=== PATIENT | female | born 1990 | race Caucasian/White ===

== ENCOUNTER → 2016-10-25 | Outpatient (CLI) | payer MEDICAID ==
[~2016-10-25] MED LIST: EFFE75CA75 PO; LOTRCRE TOP; TRAZ25TA PO; no home medications
--- NOTE | 2016-10-25 15:56 | REP ---
Obstetric sonography: History: Supervision of followup anatomy. Findings: Scanning through the gravid uterus demonstrates a viable single intrauterine gestation in a cephalic lie. motion is observed and heart rate is recorded at 139 beats per minute. A posterior grade 1 placenta is seen without evidence of previa or abruption. Amniotic fluid is subjectively normal. Closed cervical length is 3.9 cm. No extrauterine abnormality is observed. There has been appropriate interval growth. Exam quality was inhibited to some degree by maternal body habitus and position. No anomaly is seen. face and profile are less than optimally seen today but these structures were identified previously. The following additional anatomic structures are identified and felt to be sonographically unremarkable: cranium, choroid plexus, cavum, cerebellum and posterior fossa, lungs, four-chamber heart with left and right ventricular outflow tract views, diaphragm, left-sided stomach, abdominal wall cord insertion, three-vessel umbilical cord, kidneys and bladder, spine, upper and lower extremities. The umbilical cord is seen draping across the shoulders. Biometry chart: BPD 5.0 cm = 21 weeks 2 days Head circumference 18.5 cm = 20 weeks 6 days Abdominal circumference 15.2 cm = 20 weeks 3 days Femur length 3.5 cm = 20 weeks 6 days Humeral length 3.4 cm = 21 weeks 3 days Cerebellar diameter 2.2 cm = 20 weeks 6 days HC/AC ratio normal 1.22 cephalic index normal 0.76 estimated weight 368 grams, 0 pounds 12 ounces, 48th percentile for 20 weeks 4 days. Impression: Viable single intrauterine gestation at 20 weeks 4 days by today's composite sonographic criteria. Expected gestational age estimate based on prior sonography is also 20 weeks 4 days. HENNA by prior sonography is March 10, 2017. anatomic survey is felt to be complete in combination with the prior study. Signed by Seven Meyer MD 10/25/2016 05:41 P
== END ==
LOC: M SMT 13:47
PROVIDERS: ATTEND Specialist
DX: Z34.82 Encounter for supervision of other normal pregnancy, second trimester (principal); Z36 Encounter for antenatal screening of mother; Z3A.20 20 weeks gestation of pregnancy

== ENCOUNTER 2016-11-19 19:39 | Outpatient (CLI) | payer MEDICAID ==
[~2016-11-19] VITALS: Ht 149.9 cm; Wt 95.0 kg
[2016-11-19] MEDS ORDERED: LACTATED RINGER'S 1000 ML IV ONE (21:15)
[2016-11-19] MEDS ORDERED: LR 1,000 ML IV SCH (21:15)
[2016-11-19] MEDS ORDERED: ONDANSETRON 4MG/2ML VIAL (J2405) IV PRN (21:30)
[2016-11-19] MEDS ORDERED: ONDANSETRON 4 MG TAB (S0181) PO PRN (22:15)
[2016-11-19 22:34] LABS: AMPHETAMINES URINE REFLEX NEGATIVE (NEGATIVE); BARBITURATES URINE REFLEX NEGATIVE (NEGATIVE); BENZODIAZEPINES URINE REFLEX NEGATIVE (NEGATIVE); COCAINE METABOLITE URINE REFLE NEGATIVE (NEGATIVE); CONTROL LINE INT CTR LINE PRESENT; METHADONE URINE REFLEX NEGATIVE (NEGATIVE); OPIATES URINE REFLEX NEGATIVE (NEGATIVE); TRICYCLIC ANTIDEPRESS UR REFL NEGATIVE (NEGATIVE)
[2016-11-19 22:51] LABS: MEAN CORPUSCULAR HEMOGLOBIN 29.5 pg (27.0-33.0); MEAN CORPUSCULAR HGB CONC 34.6 g/dl (32.0-36.5); MEAN CORPUSCULAR VOLUME 85.3 fl (80.0-96.0); RED CELL DISTRIBUTION WIDTH 14.1 % (11.5-14.5); WHITE BLOOD COUNT 13.4 K/mm3 (4.0-10.0)
== END 2016-11-20 00:50 | disposition home or self-care (01) ==
LOC: M LDO 19:39
PROVIDERS: ATTEND Advanced Practice Midwife
DX: O21.2 Late vomiting of pregnancy (principal); Z3A.24 24 weeks gestation of pregnancy
CPT/HCPCS: 36415; 59025; 80306; 85027; G0480

== ENCOUNTER → 2016-12-13 | Outpatient (CLI) | payer MEDICAID ==
--- NOTE | 2016-12-13 15:27 | REP ---
Size and date discrepancy. Priors reviews. Multiple sonographic images of the gravid uterus show a single living intrauterine gestation in the cephalic presentation. Doppler interrogation of the heart shows a heart rate of 139 beats per minute. The placenta is anterior and not low lying. The subjected amniotic fluid volume is within normal limits with a calculated amniotic fluid index of 12.2 and an expected range of 9.4 to 22.7. The cervix measures 3.9 cm in length and is closed. Doppler interrogation of the umbilical artery shows an A/B ratio of 3.14. This is within the normal range. BPD 6.8 cm = 27 weeks 3 days HC 25.9 cm = 28 weeks 1 day AC 22.6 cm = 27 weeks 0 days FL 4.8 cm = 26 weeks 1 day The estimated weight is 986 grams, which is at the 23rd percentile for a 28-hozo-1-day gestational age. Single living intrauterine gestation as described above. With an estimated gestational age of 26w 5d via composite criteria and an estimated date of delivery of 6-7-17 by today's exam Signed by Bi Raines DO 12/13/2016 03:50 P
== END ==
LOC: M SMT 13:42
PROVIDERS: ATTEND Obstetrics & Gynecology
DX: O26.843 Uterine size-date discrepancy, third trimester (principal); Z3A.26 26 weeks gestation of pregnancy

== ENCOUNTER → 2016-12-31 | Outpatient (CLI) | payer MEDICAID ==
[2016-12-31 13:24] LABS: BASO % 0.2 % (0.0-1.0); EOS # 0.2 K/mm3 (0.0-0.50); EOS % 1.4 % (0.0-3.0); LARGE UNSTAINED CELL # 0.1 K/mm3 (0.0-0.4); LARGE UNSTAINED CELL % 0.8 % (0.0-4.0); LYMPH # 2.2 K/mm3 (1.5-6.5); LYMPH % 13.7 % (24.0-44.0); MEAN CORPUSCULAR HEMOGLOBIN 29.3 pg (27.0-33.0); MEAN CORPUSCULAR HGB CONC 33.5 g/dl (32.0-36.5); MEAN CORPUSCULAR VOLUME 87.3 fl (80.0-96.0); MONO # 0.7 K/mm3 (0.0-0.8); MONO % 4.4 % (0.0-5.0); NEUTROPHILS # 11.9 K/mm3 (1.8-7.7); NEUTROPHILS % 79.5 % (36.0-66.0); PLATELET COUNT, AUTOMATED 368 k/mm3 (150-450); RED CELL DISTRIBUTION WIDTH 14.3 % (11.5-14.5)
== END ==
LOC: M WUC 09:13
PROVIDERS: ATTEND Obstetrics & Gynecology
DX: Z34.83 Encounter for supervision of other normal pregnancy, third trimester (principal); Z36 Encounter for antenatal screening of mother

== ENCOUNTER 2017-01-12 19:54 | Outpatient (CLI) | payer MEDICAID ==
[~2017-01-12] VITALS: Ht 149.9 cm; Wt 91.0 kg
[2017-01-12] MEDS ORDERED: PRENTAB9 PO (20:08)
[2017-01-12 20:10] VITALS: BP 102/55
== END 2017-01-13 01:00 | disposition home or self-care (01) ==
LOC: M LDO 19:54
PROVIDERS: ATTEND Specialist
DX: O47.03 False labor before 37 completed weeks of gestation, third trimester (principal); Z3A.31 31 weeks gestation of pregnancy; W19.XXXA Unspecified fall, initial encounter; X58.XXXA Exposure to other specified factors, initial encounter; Y93.9 Activity, unspecified; Y92.9 Unspecified place or not applicable; Y99.8 Other external cause status

== ENCOUNTER → 2017-02-07 | Outpatient (REF) | payer MEDICAID ==
[~2017-02-07] MED LIST changes: +PRENTAB9 PO
== END ==
LOC: M LAB REF 12:44
PROVIDERS: ATTEND Specialist
DX: O24.419 Gestational diabetes mellitus in pregnancy, unspecified control (principal)

== ENCOUNTER 2017-02-17 07:20 | Inpatient (IN) | payer MEDICAID ==
[~2017-02-17] VITALS: Ht 149.9 cm; Wt 98.0 kg
[2017-02-17] VITALS (9 sets, daily range): BP systolic 118–131; BP diastolic 57–81
[2017-02-17] MEDS ORDERED: ZANTTAB PO (07:53)
[2017-02-17] MEDS ORDERED: GLYB5TA PO (07:53)
[2017-02-17] MEDS ORDERED: ZOFR4TAB3 PO (07:53)
[2017-02-17] MEDS ORDERED: PROM200C5 PO (07:53)
[2017-02-17] MEDS ORDERED: INSULIN HUMAN REGULAR 100 UNITS in NS 99 ML IV SCH (08:10)
[2017-02-17] MEDS ORDERED: INSULIN IV RATE CHANGE DOCUMENTATION ML/HR XX SCH (08:15)
[2017-02-17 08:29] LABS: MEAN CORPUSCULAR HEMOGLOBIN 29.9 pg (27.0-33.0); MEAN CORPUSCULAR HGB CONC 34.6 g/dl (32.0-36.5); MEAN CORPUSCULAR VOLUME 86.4 fl (80.0-96.0); RED CELL DISTRIBUTION WIDTH 14.3 % (11.5-14.5); WHITE BLOOD COUNT 14.5 K/mm3 (4.0-10.0)
[2017-02-17] MEDS: NS 1,000 ML IV SCH ×2 (08:35→16:26)
[2017-02-17] MEDS: miSOPROStol 50 MCG 1/2 TAB (S0191) PO SCH ×4 (08:35→21:10)
[2017-02-17] MEDS: INSULIN HUMAN REGULAR 100 UNITS in NS 99 ML IV SCH (09:00)
--- NOTE | 2017-02-17 09:31 | HPE ---
DATE OF ADMISSION: 02/17/2017 Mary Carmen is a 26-year-old 5, para 0-0-4-0 at 37 1/7 weeks gestation with an EDC of 03/09/2017 based on first trimester ultrasound. She presents to labor and delivery today per recommendation and consult with Dr. Edwin Valentin due to uncontrolled diabetes during , noncompliance with care, and a history of multiple miscarriages. She reports an occasional contraction. She denies vaginal bleeding and leakage of fluid. The fetus has been active today. Her care was initiated at [facility] in the first trimester. Her course has been complicated by diagnosis of gestational diabetes in the third trimester with a 1-hour glucose greater than 200. She was placed on glyburide, however, chose not to take the medication as instructed. She failed to document or obtain her glucoses in any regular fashion. She rarely brought a glucose log for review. She is a cigarette smoker, approximately one pack per day. She is noted to have polyhydramnios and she is rubella nonimmune. OBSTETRICAL HISTORY: Spontaneous miscarriage times four, dates are not reviewed. OBSTETRICAL LABS: Blood type is B+. Antibody screen was negative. Her Pap from 2013 was normal. She is rubella nonimmune. VDRL was nonreactive. Hepatitis surface antigen is negative. HIV is negative. Hepatitis C antibody negative. Gonorrhea and chlamydia negative. She did not have any genetic screening labs performed. Gestational diabetic screening elevated at 203. Group B Streptococcus (GBS) negative. She did undergo a urine drug screen on 11/19/2016 was positive for cannabinoids. Urine drug screen will be repeated today. PAST MEDICAL HISTORY: Asthma. Allergy to latex. Childhood varicella. FAMILY HISTORY: Diabetes, hypertension, heart disease, asthma, mental retardation, autism. SURGERIES: Tympanostomy. SOCIAL HISTORY: The patient is single. She does appear to have family members at bedside and supportive. There does not to be appear to be a father of the baby involved at this time. She is a smoker, one pack per day. She denies alcohol and drug use. There is a denied history of sexually transmitted infections. Denies history of abuse physical, sexual and emotional. ALLERGIES: 1. Pollen. 2. Perfume. 3. Nicotine. 4. LATEX. CURRENT MEDICATIONS: - vitamins. OBJECTIVE: Temperature 97.4, pulse 96, respirations 18, blood pressure 129/78. She is alert and oriented. She does report and grimace with some back discomfort with activity. heart rate is 120 with moderate variability, positive accelerations, no decelerations observed. There is uterine irritability and occasional contraction noted. Her abdomen is gravid, cephalic presentation. Estimated weight 2269-5178 grams. Sterile vaginal exam 1 cm dilated, 80% effaced, ballotable. ASSESSMENT: Intrauterine at 37 weeks gestation. heart rate category 1. Uncontrolled diabetes during . PLAN: Per recommendation and consult with Dr. Valentin, admit the patient to labor and delivery for induction of labor. Labs as usual. Urine drug screen. Insulin drip per protocol. Out of bed ad hill. Consistent carbohydrate diet at this time. Start misoprostol 50 mcg p.o. q.4 h for cervical ripening. I did review risks to induction including failed induction, intolerance to labor and increased risk for section. All of the patient's questions have been answered and she does desire to proceed with induction at this time. I do anticipate cervical ripening and in active labor. MTDD
[2017-02-17] MEDS ORDERED: BUTORPHANOL 2 MG/ML INJ (J0595) IV ONE (16:15)
[2017-02-17] MEDS ORDERED: PROMETHAZINE INJ 25 MG/ML VIAL (J2550) IV ONE (16:15)
[2017-02-18] VITALS (44 sets, daily range): BP systolic 104–144; BP diastolic 52–92
[2017-02-18] MEDS ORDERED: miSOPROStol 100 MCG TAB (S0191) PO ONE (01:15)
[2017-02-18] MEDS ORDERED: PROMETHAZINE INJ 25 MG/ML VIAL (J2550) IV ONE (02:00)
[2017-02-18] MEDS ORDERED: BUTORPHANOL 2 MG/ML INJ (J0595) IV ONE (02:00)
[2017-02-18] MEDS: LR 1,000 ML IV SCH (04:15)
[2017-02-18] MEDS ORDERED: LR 1,000 ML IV SCH ×2 (07:53→23:00)
[2017-02-18] MEDS ORDERED: OXYTOCIN DRIP 30 UNITS in APPROPRIATE DILUENT 1 EA IV SCH (08:00)
[2017-02-18] MEDS ORDERED: FENTANYL 2MCG/ML ROPIVACAINE 0.2% IN 0.9% NACL 200ML IVBAG As Ordered ONE (09:13)
[2017-02-18] MEDS ORDERED: ePHEDrine SULFATE 25 MG/5 ML(5MG/ML) SYRINGE IV PRN (11:15)
[2017-02-18] MEDS ORDERED: ONDANSETRON 4MG/2ML VIAL (J2405) IV PRN ×4 (11:15→23:00)
[2017-02-18] MEDS ORDERED: NALOXONE INJ 0.4 MG/1 ML VIAL (J2310) IV PRN ×3 (11:15→22:00)
[2017-02-18] MEDS ORDERED: REFRIGERATOR IV KEYS XX PRN (11:15)
[2017-02-18] MEDS ORDERED: diphenhydrAMINE INJ 50MG/ML VIAL (J1200) IV PRN ×2 (11:15→23:00)
[2017-02-18] MEDS ORDERED: LACTATED RINGER'S 1000 ML IV PRN (11:15)
[2017-02-18] MEDS ORDERED: EPIDURAL COMMENT XX SCH (11:15)
[2017-02-18] MEDS ORDERED: EPIDURAL/PCA KEYS XX PRN (11:15)
[2017-02-18] MEDS ORDERED: FENTANYL/ROPIVACAINE/NACL BAG 200 ML EPIDURAL SCH (11:15)
[2017-02-18] MEDS: INSULIN HUMAN REGULAR 100 UNITS in NS 99 ML IV SCH (12:30)
[2017-02-18] MEDS ORDERED: ACETAMINOPHEN 500 MG TAB PO ONE (19:45)
[2017-02-18] MEDS ORDERED: BICITRA 30ML SOLN UDC PO ONE (20:30)
[2017-02-18] MEDS ORDERED: dexameTHASONE 4 MG/ML 1ML VIAL (J1100) As Ordered ONE (21:42)
[2017-02-18] MEDS ORDERED: ePHEDrine SULFATE 25 MG/5 ML(5MG/ML) SYRINGE As Ordered ONE (21:42)
[2017-02-18] MEDS ORDERED: OXYTOCIN INJ 10 UNITS/ML VIAL (J2590) As Ordered ONE (21:42)
[2017-02-18] MEDS ORDERED: SODIUM BICARBONATE 8.4% INJ 50 ML SYRINGE As Ordered ONE (21:42)
[2017-02-18] MEDS ORDERED: KETOROLAC 60 MG/2 ML VIAL (J1885) As Ordered ONE (21:42)
[2017-02-18] MEDS ORDERED: MORPHINE PRES-FREE INJ 10 MG/10 ML VIAL (J2274) As Ordered ONE (21:42)
[2017-02-18] MEDS ORDERED: ONDANSETRON 4MG/2ML VIAL (J2405) As Ordered ONE (21:42)
[2017-02-18] MEDS ORDERED: LIDOCAINE 2% W/EPIN INJ 20ML **PRES FREE As Ordered ONE (21:42)
[2017-02-18] MEDS ORDERED: PHENYLephrine HCL 500 MCG/5 ML (100MCG/ML) SYRINGE (J2370) As Ordered ONE (21:42)
[2017-02-18] MEDS ORDERED: METOCLOPRAMIDE INJ 10MG/2ML VIAL (J2765) IV PRN (22:00)
[2017-02-18] MEDS ORDERED: NALBUPHINE HCL 10 MG/ML AMP (J2300) IV PRN ×2 (22:00→23:00)
[2017-02-18] MEDS ORDERED: OXYTOCIN DRIP 30 UNITS in APPROPRIATE DILUENT 1 EA IV ONE (22:45)
[2017-02-18] MEDS ORDERED: RHOGAM 300 MCG (1500 IU) INJ (J2790) IM SCH (22:45)
[2017-02-18] MEDS ORDERED: MEASLES,MUMPS,RUBELLA VACCINE INJ (MMR-II) (90707) SC SCH (22:45)
[2017-02-18] MEDS ORDERED: PERCOCET 5MG/325MG TAB PO PRN (22:45)
[2017-02-18] MEDS ORDERED: DOCUSATE SODIUM 100 MG CAP PO PRN (22:45)
[2017-02-18] MEDS ORDERED: MOM 30ML SUSPENSION UDC PO PRN (22:45)
[2017-02-18] MEDS ORDERED: fentaNYL 100 MCG/2 ML INJECTION (J3010) IV PRN (23:00)
[2017-02-18] MEDS ORDERED: MEPERIDINE INJ 25 MG/ML VIAL (J2175) IV PRN (23:00)
[2017-02-19] VITALS (8 sets, daily range): BP systolic 101–156; BP diastolic 55–79
[2017-02-19] MEDS ORDERED: diphenhydrAMINE 50 MG CAP PO PRN (03:00)
[2017-02-19] MEDS: KETOROLAC 30 MG/ML VIAL (J1885) IV SCH ×4 (04:22→22:10)
[2017-02-19 06:40] LABS: MEAN CORPUSCULAR HEMOGLOBIN 29.2 pg (27.0-33.0); MEAN CORPUSCULAR HGB CONC 33.2 g/dl (32.0-36.5); MEAN CORPUSCULAR VOLUME 87.9 fl (80.0-96.0); RED CELL DISTRIBUTION WIDTH 14.3 % (11.5-14.5); WHITE BLOOD COUNT 17.7 K/mm3 (4.0-10.0)
[2017-02-19] MEDS: LR 1,000 ML IV SCH ×3 (06:41→22:41)
--- NOTE | 2017-02-19 06:43 | RO ---
DATE OF PROCEDURE: 02/18/2017 PREPROCEDURE DIAGNOSES: 1. Arrest of dilation. 2. Poorly controlled gestational diabetes. 3. Polyhydramnios. POSTPROCEDURE DIAGNOSES: 1. Arrest of dilation. 2. Poorly controlled gestational diabetes. 3. Polyhydramnios. PROCEDURE: Primary lower transverse section. SURGEON: Sushma Jay MD CANDLEMAKER: Chaz Lyons MD ANESTHESIA: Epidural. ESTIMATED BLOOD LOSS: 600 mL INTRAVENOUS FLUIDS: 1600 mL of lactated ringer solution. PREOPERATIVE ANTIBIOTICS: 2 grams of Ancef. URINE OUTPUT: 100 mL. OPERATIVE FINDINGS: Live born male , scores 8 and 9, weight 3618 grams or 7 pounds 15 ounces. DESCRIPTION OF PROCEDURE: After informed consent was obtained and written content was reviewed, the patient was brought to the operating room where she was placed in lithotomy position with a left lateral tilt. A Zambrano catheter had previously been placed and had been set to gravity. The patient was then prepped and draped in a normal sterile fashion. A time out in the operating room was then performed identifying the patient, the procedure to be performed, as well as drug allergies. Anesthesia was then tested and deemed to be adequate. A Pfannenstiel skin incision was then made and carried down to the underlying rectus fascia. The fascia was scored and this incision was extended bilaterally. The fascia was then dissected off the underlying rectus muscles, both superiorly and inferiorly. The rectus muscles were in the midline. The peritoneum was then. The vesicouterine peritoneum was then identified, tented and excised to create a bladder flap. The bladder blade was then placed to retract back the bladder. A curvilinear incision was then made in the lower uterine segment. The head was brought to the level atraumatically and then delivered followed by delivery of the shoulders and corpus. The cord was clamped times two and was cut. The was taken over to the warmer. The placenta was then drained and delivered grossly intact. The uterus was then exteriorized and cleared of all clots and debris. The uterine incision was then closed in two layers using #0 Vicryl for the first layer in a running locking fashion, followed by a second layer for imbrication in a running nonlocking fashion. The abdomen was then suctioned. The uterus was returned to the patient's abdomen. It was reinspected and noted to be hemostatic. The anterior peritoneum was then reapproximated with #3-0 Vicryl. The rectus muscles were reapproximated with #3-0 Vicryl. The fascia was then closed with #0 Vicryl in a running nonlocking fashion. The subcutaneous tissue was then irrigated and suctioned. The subcutaneous tissue was then reapproximated with #3-0 Vicryl, several subdermal stitches were placed with #3-0 Vicryl. The skin was closed with #4-0 Monocryl in a subcuticular fashion. The incision was then cleaned and dried. Mastisol was applied above and below the incision. Steri-Strips were applied over the incision. The incision was then dressed. The patient was then taken to recovery in stable condition. Counts were correct. MTDD
[2017-02-19] MEDS: PRENATAL VITAMIN TAB PO SCH (10:04)
[2017-02-20 02:18] VITALS: BP 159/81
[2017-02-20] MEDS: PERCOCET 5MG/325MG TAB PO PRN ×4 (02:26→17:57)
[2017-02-20 05:26] VITALS: BP 136/74
[2017-02-20] MEDS: IBUPROFEN 800 MG TAB PO SCH ×3 (05:28→22:13)
[2017-02-20] MEDS: PRENATAL VITAMIN TAB PO SCH (08:18)
[2017-02-20 18:03] VITALS: BP 119/56
[2017-02-21] MEDS: IBUPROFEN 800 MG TAB PO SCH (05:04)
[2017-02-21 05:51] VITALS: BP 124/62
[2017-02-21] MEDS ORDERED: IBUP800T23 PO (07:39)
[2017-02-21] MEDS ORDERED: PERCOCET PO (07:40)
[2017-02-21] MEDS ORDERED: COLA100C3 PO (07:47)
[2017-02-21] MEDS ORDERED: MILKSUS PO (07:47)
[2017-02-21] MEDS ORDERED: BENA25CA4 PO (07:47)
--- NOTE | 2017-02-21 07:49 | DSES ---
DATE OF ADMISSION: 02/17/2017 DATE OF DISCHARGE: 02/21/2017 DISCHARGE DIAGNOSES: 1. Poorly controlled gestational diabetes. 2. Primary section for arrest of dilation. DISCHARGE CONDITION: Stable. PROCEDURES PERFORMED WHILE IN HOSPITAL: 1. Epidural. 2. Primary section. HISTORY AND HOSPITAL COURSE: Ms. Suero is a 26-year-old, 1, who presented for induction of labor secondary to poorly controlled A2 gestational diabetes. She had protracted labor and arrested after several hours of adequate contraction with no further change. She was counseled for section, which was unremarkable, productive of a liveborn male . Postoperatively, Ms. Suero did well and by postoperative day #3, she had met all discharge criteria and was discharged home in stable condition. On physical exam on date of discharge, her vital signs were stable. She was afebrile. Her general appearance was well appearing, no acute distress. Her abdomen was soft, appropriately tender, nondistended. Her incision was clean, dry, intact, not erythemic, well approximated. Extremities negative for calf tenderness. DISCHARGE MEDICATION: - ibuprofen - Percocet DISCHARGE INSTRUCTIONS: 1. She was instructed to followup in 2 weeks for incision check. 2. To remain on pelvic rest for 6 weeks. 3. To report severe pain, heavy vaginal bleeding, fever, or incisional issue. Edited: [facility] 02/22/2017 [id number]
[2017-02-21] MEDS: PERCOCET 5MG/325MG TAB PO PRN (08:08)
[2017-02-21] MEDS: PRENATAL VITAMIN TAB PO SCH (08:08)
== END 2017-02-21 13:25 | disposition home or self-care (01) | DRG 540 ==
LOC: M LDI 07:20 → M MS5PR 02-19 00:30 → M OBS 02-19 08:46
PROVIDERS: ADMIT Advanced Practice Midwife; ATTEND Advanced Practice Midwife
PROC: 3E0DXGC Introduction of Other Therapeutic Substance into Mouth and Pharynx, External Approach (ICD-10-PCS; 2017-02-17)
PROC: 10D00Z1 Extraction of Products of Conception, Low, Open Approach (ICD-10-PCS; principal; 2017-02-18 21:49)
DX: O24.425 Gestational diabetes mellitus in childbirth, controlled by oral hypoglycemic drugs (principal); Z37.0 Single live birth; Z3A.37 37 weeks gestation of pregnancy; J45.909 Unspecified asthma, uncomplicated; Z91.040 Latex allergy status; F17.200 Nicotine dependence, unspecified, uncomplicated; O99.334 Smoking (tobacco) complicating childbirth; O40.3XX0 Polyhydramnios, third trimester, not applicable or unspecified; Z91.19 Patient's noncompliance with other medical treatment and regimen; O62.0 Primary inadequate contractions; O99.53 Diseases of the respiratory system complicating the puerperium

== ENCOUNTER 2017-07-25 01:18 | Emergency (ER) | payer MEDICAID, SELFPAY ==
[~2017-07-25] VITALS: Ht 149.9 cm; Wt 81.8 kg
[~2017-07-25 01:18] MED LIST changes: +BENA25CA4 PO; +COLA100C5 PO; +GLYB5TA PO; +IBUP1TAB7 PO; +MILKSUS PO; +PERCOCET PO; +PROM200C5 PO; +ZANTTAB PO; +ZOFR4TAB3 PO
[2017-07-25 01:23] VITALS: BP 116/54
[2017-07-25] MEDS ORDERED: FLON1SPR (01:54)
[2017-07-25] MEDS ORDERED: CEFD1CAP8 PO (01:54)
[2017-07-26] MEDS ORDERED: IBUP80TA PO (07:35)
[2017-07-26] MEDS ORDERED: AUGM875T28 PO (07:35)
== END 2017-07-25 02:16 | disposition home or self-care (01) ==
LOC: M ED 01:18
DX: H65.00 Acute serous otitis media, unspecified ear (principal); J30.9 Allergic rhinitis, unspecified; Z91.040 Latex allergy status

== ENCOUNTER 2017-07-26 07:10 | Emergency (ER) | payer MEDICAID, SELFPAY ==
[~2017-07-26] VITALS: Ht 149.9 cm; Wt 81.8 kg
[~2017-07-26 07:10] MED LIST changes: +CEFD1CAP8 PO; +FLON1SPR
[2017-07-26 07:11] VITALS: BP 121/73
[2017-07-26] MEDS ORDERED: IBUP80TA PO (07:35)
[2017-07-26] MEDS ORDERED: AUGM875T28 PO (07:35)
[2017-07-26] MEDS: AUGMENTIN 875 MG TAB PO ONE (07:37)
[2017-07-26] MEDS: IBUPROFEN 800 MG TAB PO ONE (07:37)
== END 2017-07-26 07:41 | disposition home or self-care (01) ==
LOC: M ED 07:10
DX: H66.93 Otitis media, unspecified, bilateral (principal); J01.90 Acute sinusitis, unspecified; F17.210 Nicotine dependence, cigarettes, uncomplicated; Z91.040 Latex allergy status; Z91.048 Other nonmedicinal substance allergy status; Z79.899 Other long term (current) drug therapy

== ENCOUNTER 2017-11-02 12:15 | Emergency (ER) | payer MEDICAID, SELFPAY ==
[2017-11-02 13:52] LABS: BASO # 0.1 10^3/uL (0.0-0.2); BASO % 0.5 % (0.0-1.0); EOS # 0.2 10^3/uL (0.0-0.50); EOS % 2.2 % (0.0-3.0); HEMATOCRIT 44.3 % (36.0-47.0); IMMATURE GRANULOCYTE % 0.4 % (0-0); LYMPH # 2.3 10^3/uL (1.5-6.5); LYMPH % 22.1 % (24.0-44.0); MEAN CORPUSCULAR HEMOGLOBIN 27.9 pg (27.0-33.0); MEAN CORPUSCULAR HGB CONC 33.9 g/dl (32.0-36.5); MEAN CORPUSCULAR VOLUME 82.5 fl (80.0-96.0); MONO # 0.6 10^3/uL (0.0-0.8); NEUTROPHILS # 7.2 10^3/uL (1.8-7.7); NEUTROPHILS % 68.8 % (36.0-66.0); PLATELET COUNT, AUTOMATED 397 10^3/uL (150-450); RED BLOOD COUNT 5.37 10^6/uL (4.00-5.40); RED CELL DISTRIBUTION WIDTH 13.4 % (11.5-14.5); WHITE BLOOD COUNT 10.4 10^3/uL (4.0-10.0)
[2017-11-02 14:03] LABS: INR 0.97
[2017-11-02] MEDS: KETOROLAC 30 MG/ML VIAL (J1885) IV (14:03)
[2017-11-02] MEDS: NS 1,000 ML IV (14:03)
[2017-11-02] MEDS: ONDANSETRON 4MG/2ML VIAL (J2405) IV (14:03)
[2017-11-02 14:16] LABS: MAGNESIUM LEVEL 2.2 MG/DL (1.8-2.4)
[2017-11-02 14:16] LABS: FREE T4 0.93 NG/DL (0.76-1.46)
[2017-11-02 14:22] LABS: ANION GAP 4 MEQ/L (8-16); BLOOD UREA NITROGEN 7 MG/DL (7-18); CARBON DIOXIDE LEVEL 29 MEQ/L (21-32); CHLORIDE LEVEL 106 MEQ/L (98-107); CREATININE FOR GFR 0.57 MG/DL (0.55-1.02); GLOMERULAR FILTRATION RATE > 60.0 (>60); GLUCOSE, FASTING 83 MG/DL (70-100); POTASSIUM SERUM 4.3 MEQ/L (3.5-5.1); SODIUM LEVEL 139 MEQ/L (136-145)
[2017-11-02 14:34] LABS: KETONE, URINE AUTO RFX NEGATIVE (NEGATIVE); LEUKOCYTE ESTERASE UR AUTO RFX NEGATIVE (NEGATIVE); NITRITE, URINE AUTO RFX NEGATIVE (NEGATIVE); RBC, URINE AUTO RFX 2 /HPF (0-3); SPECIFIC GRAVITY UR AUTO RFX 1.005 (1.002-1.035); SQUAM EPITHELIAL CELL UR AURFX 1 /HPF (0-6); WBC, URINE AUTO RFX 0 /HPF (0-3)
== END 2017-11-02 15:10 | disposition home or self-care (01) ==
LOC: M ED 12:15
DX: G44.209 Tension-type headache, unspecified, not intractable (principal); E28.2 Polycystic ovarian syndrome; M41.9 Scoliosis, unspecified; J30.2 Other seasonal allergic rhinitis; Z79.899 Other long term (current) drug therapy; Z91.040 Latex allergy status
CPT/HCPCS: J2405

== ENCOUNTER 2017-11-25 17:30 | Emergency (ER) | payer OTHER, MEDICAID ==
[2017-11-25] MEDS: IBUPROFEN 800 MG TAB PO (20:18)
[2017-11-25 20:56] LABS: INFLUENZA A AMPLIFICATION POSITIVE (NEGATIVE); INFLUENZA B AMPLIFICATION NEGATIVE (NEGATIVE); RSV AMPLIFICATION NEGATIVE (NEGATIVE)
[2017-11-25] MEDS: OSELTAMIVIR PHOSPHATE 75 MG CAP (TAMIFLU) PO (21:21)
== END 2017-11-25 21:33 | disposition home or self-care (01) ==
LOC: M ED 17:30
DX: J09.X2 Influenza due to identified novel influenza A virus with other respiratory manifestations (principal); F17.200 Nicotine dependence, unspecified, uncomplicated; J30.2 Other seasonal allergic rhinitis; Z91.040 Latex allergy status
CPT/HCPCS: 87631

== ENCOUNTER 2018-02-23 08:53 | Day surgery (SDC) | payer OTHER ==
[2018-02-23] MEDS ORDERED: LR 1,000 ML IV ×2 (09:30→10:45)
[2018-02-23] MEDS ORDERED: LIDOCAINE 1% MDV 20ML VIAL SQ (09:30)
[2018-02-23] MEDS ORDERED: MIDAZOLAM INJ 2 MG/2 ML VIAL (J2250) As Ordered (09:39)
[2018-02-23] MEDS ORDERED: LIDOCAINE 2% INJ 100 MG/5 ML SDV (FOR ANES.) As Ordered (09:39)
[2018-02-23] MEDS ORDERED: PROPOFOL 200 MG/20 ML VIAL As Ordered (09:39)
[2018-02-23] MEDS ORDERED: fentaNYL 100 MCG/2 ML INJECTION (J3010) As Ordered (09:39)
[2018-02-23 09:42] LABS: CONTROL LINE UCG INT CTR LINE PRESENT; URINE PREG TEST NEGATIVE (NEGATIVE)
[2018-02-23] MEDS: CIPRODEX OTIC SUSP 7.5ML As Ordered (10:19)
[2018-02-23] MEDS ORDERED: MEPERIDINE INJ 25 MG/ML VIAL (J2175) IV (10:45)
[2018-02-23] MEDS ORDERED: PERCOCET 5MG/325MG TAB PO (10:45)
[2018-02-23] MEDS ORDERED: fentaNYL 100 MCG/2 ML INJECTION (J3010) IV (10:45)
[2018-02-23] MEDS ORDERED: ONDANSETRON 4MG/2ML VIAL (J2405) IV (10:45)
[2018-02-23] MEDS ORDERED: METOCLOPRAMIDE INJ 10MG/2ML VIAL (J2765) IV (10:45)
== END 2018-02-23 11:53 | disposition home or self-care (01) ==
LOC: M SDC 08:53
DX: H65.21 Chronic serous otitis media, right ear (principal); M41.9 Scoliosis, unspecified; F41.9 Anxiety disorder, unspecified; F32.9 Major depressive disorder, single episode, unspecified; K21.9 Gastro-esophageal reflux disease without esophagitis; J30.9 Allergic rhinitis, unspecified; R06.83 Snoring; G47.33 Obstructive sleep apnea (adult) (pediatric); Z91.040 Latex allergy status; Z91.09 Other allergy status, other than to drugs and biological substances; Z91.5 Personal history of self-harm; Z72.0 Tobacco use
CPT/HCPCS: 69436

== ENCOUNTER → 2018-03-08 | Outpatient (REF) | payer OTHER ==
[2018-03-08 12:16] LABS: ALBUMIN 3.5 GM/DL (3.2-5.2); ALBUMIN/GLOBULIN RATIO 1.09 (1.00-1.93); ALKALINE PHOSPHATASE 100 U/L (45-117); ALT/SGPT 30 U/L (12-78); ANION GAP 7 MEQ/L (8-16); AST/SGOT 17 U/L (7-37); BILIRUBIN,TOTAL 0.2 MG/DL (0.2-1.0); BLOOD UREA NITROGEN 14 MG/DL (7-18); CALCIUM LEVEL 8.5 MG/DL (8.5-10.1); CARBON DIOXIDE LEVEL 23 MEQ/L (21-32); CHLORIDE LEVEL 111 MEQ/L (98-107); CHOLESTEROL LEVEL 173 MG/DL (<200); CHOLESTEROL RISK RATIO 7.863 (<5); CREATININE FOR GFR 0.63 MG/DL (0.55-1.30); GLOMERULAR FILTRATION RATE > 60.0 (>60); GLUCOSE, FASTING 128 MG/DL (70-100); HDL CHOLESTEROL 22 MG/DL (>40); NON-HDL-C 151 MG/DL; SODIUM LEVEL 141 MEQ/L (136-145); TOTAL PROTEIN 6.7 GM/DL (6.4-8.2); TRIGLYCERIDES LEVEL 720 MG/DL (<150)
[2018-03-08 12:23] LABS: ESTIMATED AVERAGE GLUCOSE 108 MG/DL (60-110); HEMOGLOBIN A1c 5.4 %
== END ==
LOC: M LAB REF 11:17
DX: Z13.29 Encounter for screening for other suspected endocrine disorder (principal)

== ENCOUNTER 2018-11-02 18:10 | Emergency (ER) | payer OTHER ==
[~2018-11-02] VITALS: Ht 149.9 cm; Wt 94.5 kg
[~2018-11-02 18:10] MED LIST changes: +AUGM875T28 PO; +CLEO300C2 PO; +CYCL10TA PO; +EFFE75CA2 PO; -EFFE75CA75 PO; +IBUP80TA PO; +MILK120011 PO; -MILKSUS PO; +NAPR-885 PO; +OSEL75CA PO; +VENL150C43 PO; +ZOFR4TAB14 PO; -ZOFR4TAB3 PO
[2018-11-02 20:43] VITALS: BP 112/66
== END 2018-11-02 21:06 | disposition home or self-care (01) ==
LOC: M ED 18:10
DX: Z32.01 Encounter for pregnancy test, result positive (principal); O20.9 Hemorrhage in early pregnancy, unspecified; O99.519 Diseases of the respiratory system complicating pregnancy, unspecified trimester; J30.89 Other allergic rhinitis; Z91.040 Latex allergy status; Z91.048 Other nonmedicinal substance allergy status; O99.330 Smoking (tobacco) complicating pregnancy, unspecified trimester; F17.210 Nicotine dependence, cigarettes, uncomplicated; Z3A.00 Weeks of gestation of pregnancy not specified

== ENCOUNTER 2018-11-13 01:56 | Emergency (ER) | payer OTHER ==
[~2018-11-13] VITALS: Ht 149.9 cm; Wt 94.9 kg
[2018-11-13 01:56] VITALS: BP 124/78
[2018-11-13 02:38] LABS: BASO # 0.1 10^3/uL (0.0-0.2); BASO % 0.4 % (0.0-1.0); EOS # 0.3 10^3/uL (0.0-0.50); HEMATOCRIT 39.5 % (36.0-47.0); HEMOGLOBIN 13.6 g/dl (12.0-15.5); LYMPH # 3.5 10^3/uL (1.5-6.5); LYMPH % 22.4 % (24.0-44.0); MEAN CORPUSCULAR HEMOGLOBIN 29.1 pg (27.0-33.0); MEAN CORPUSCULAR HGB CONC 34.4 g/dl (32.0-36.5); MEAN CORPUSCULAR VOLUME 84.4 fl (80.0-96.0); MONO # 1.1 10^3/uL (0.0-0.8); MONO % 6.8 % (0.0-5.0); NEUTROPHILS # 10.8 10^3/uL (1.8-7.7); NEUTROPHILS % 67.9 % (36.0-66.0); PLATELET COUNT, AUTOMATED 367 10^3/uL (150-450); RED BLOOD COUNT 4.68 10^6/uL (4.00-5.40); WHITE BLOOD COUNT 15.8 10^3/uL (4.0-10.0)
[2018-11-13 03:28] LABS: BLOOD UREA NITROGEN 8 MG/DL (7-18); CALCIUM LEVEL 8.7 MG/DL (8.5-10.1); CARBON DIOXIDE LEVEL 24 MEQ/L (21-32); CHLORIDE LEVEL 106 MEQ/L (98-107); GLOMERULAR FILTRATION RATE > 60.0 (>60); GLUCOSE, FASTING 123 MG/DL (70-100); HCG, SERUM QUANTITATIVE 16542 MIU/ML; POTASSIUM SERUM 3.8 MEQ/L (3.5-5.1); SODIUM LEVEL 138 MEQ/L (136-145)
--- NOTE | 2018-11-13 05:48 | REPVR ---
EXAM: US First Trimester, Transabdominal and US , Transvaginal EXAM DATE/TIME: 11/13/2018 4:35 AM CLINICAL HISTORY: 28 years old, female; Signs and symptoms; Lmp or gestational age (in weeks): 6w 1d; Antepartum complications; Bleeding; ; Additional info: Vg bld TECHNIQUE: Real-time transabdominal obstetrical ultrasound of the maternal pelvis and a first trimester , less than 14 weeks 0 days, with image documentation. Transvaginal imaging was used for better evaluation of the fetus and adnexa. COMPARISON: US OBS FOLL UP OR REPEAT EACH GES 12/13/2016 2:13 PM FINDINGS: GESTATION: Gestation: Single live intrauterine gestation. Heart rate: heart rate measures 113 beats per minute. Placenta: Unremarkable. No subchorionic bleed. Amniotic fluid: Amniotic and chorionic fluid are normal for gestational age. BIOMETRY: Estimated gestational age: Estimated gestational age 6 weeks one day by crown-rump length. [place]-Rump length: [place]-rump length measures 4.1 mm. MATERNAL: Uterus: Unremarkable. Cervix: Unremarkable. Right adnexa: Right ovary measures 3.6 x 2.3 x 2.8 cm. No masses. Normal vascular flow. Right ovarian cyst measuring 10 mm. Left adnexa: Left ovary measures 3.0 x 1.7 x 2.4 cm. No masses. Normal vascular flow. Intraperitoneal: No intraperitoneal free fluid. IMPRESSION: Single live intrauterine gestation. Estimated gestational age 6 weeks one day. Small cyst in the right ovary. Estimated due date is 07/08/2019. Recommend routine followup anatomical survey at 19-20 weeks. Electronically signed by: Ray Saldana On 11/13/2018 05:48:05 AM
== END 2018-11-13 05:07 | disposition home or self-care (01) ==
LOC: M ED 01:56
DX: O20.0 Threatened abortion (principal); O99.341 Other mental disorders complicating pregnancy, first trimester; F41.9 Anxiety disorder, unspecified; F32.9 Major depressive disorder, single episode, unspecified; N96 Recurrent pregnancy loss; Z3A.01 Less than 8 weeks gestation of pregnancy; Z91.048 Other nonmedicinal substance allergy status; Z91.040 Latex allergy status

== ENCOUNTER → 2018-11-20 | Outpatient (CLI) | payer OTHER | LOC: M LAB 15:22 | PROVIDERS: ATTEND Specialist | DX: Z32.01 Encounter for pregnancy test, result positive (principal) ==

== ENCOUNTER 2018-11-28 03:47 | Emergency (ER) | payer OTHER ==
[~2018-11-28] VITALS: Ht 149.9 cm; Wt 95.5 kg
[2018-11-28 03:47] VITALS: BP 118/56
[2018-11-28] MEDS ORDERED: FLAG500T PO (05:14)
[2018-11-28] MEDS ORDERED: SM C1CRE PV (05:14)
[2018-11-28] MEDS ORDERED: cefTRIAXone SOD 500 MG VIAL (J0696) IM ONE (05:15)
[2018-11-28] MEDS ORDERED: AZITHROMYCIN 250 MG TAB PO ONE (05:15)
[2018-11-28] MEDS ORDERED: LIDOCAINE 1% SDV 5 ML VIAL DILUENT ONE (05:15)
[2018-11-28 05:50] LABS: CHLAMYDIA DNA AMPLIFICATION NEGATIVE (NEGATIVE); GC DNA AMPLIFICATION NEGATIVE (NEGATIVE)
[2018-11-28] MEDS ORDERED: PRENTAB55 PO (07:18)
[2018-11-28] MEDS ORDERED: ONDA4TAB5 PO (07:18)
== END 2018-11-28 05:40 | disposition home or self-care (01) ==
LOC: M ED 03:47
DX: O23.591 Infection of other part of genital tract in pregnancy, first trimester (principal); O23.21 Infections of urethra in pregnancy, first trimester; B37.3 Candidiasis of vulva and vagina; O99.511 Diseases of the respiratory system complicating pregnancy, first trimester; J30.89 Other allergic rhinitis; Z91.048 Other nonmedicinal substance allergy status; Z91.040 Latex allergy status; Z3A.08 8 weeks gestation of pregnancy
CPT/HCPCS: 87210; 87491; 87591; 96372; 99282; J0696

== ENCOUNTER 2018-11-28 07:01 | Emergency (ER) | payer OTHER ==
[~2018-11-28] VITALS: Ht 149.9 cm; Wt 95.5 kg
[~2018-11-28 07:01] MED LIST changes: +FLAG500T PO; +SM C1CRE PV
[2018-11-28] MEDS ORDERED: PRENTAB55 PO (07:18)
[2018-11-28] MEDS ORDERED: ONDA4TAB5 PO (07:18)
[2018-11-28] MEDS ORDERED: NS 1,000 ML IV ONE (07:45)
[2018-11-28 08:35] LABS: BASO # 0.1 10^3/uL (0.0-0.2); BASO % 0.3 % (0.0-1.0); EOS # 0.2 10^3/uL (0.0-0.50); EOS % 1.2 % (0.0-3.0); HEMATOCRIT 38.9 % (36.0-47.0); HEMOGLOBIN 13.3 g/dl (12.0-15.5); LYMPH # 1.9 10^3/uL (1.5-6.5); LYMPH % 9.8 % (24.0-44.0); MEAN CORPUSCULAR HEMOGLOBIN 28.7 pg (27.0-33.0); MEAN CORPUSCULAR HGB CONC 34.2 g/dl (32.0-36.5); MEAN CORPUSCULAR VOLUME 83.8 fl (80.0-96.0); MONO # 1.2 10^3/uL (0.0-0.8); MONO % 6.2 % (0.0-5.0); NEUTROPHILS # 15.9 10^3/uL (1.8-7.7); NEUTROPHILS % 81.9 % (36.0-66.0); PLATELET COUNT, AUTOMATED 374 10^3/uL (150-450); RED BLOOD COUNT 4.64 10^6/uL (4.00-5.40); WHITE BLOOD COUNT 19.4 10^3/uL (4.0-10.0)
[2018-11-28 09:24] VITALS: BP 132/58
--- NOTE | 2018-11-28 09:24 | REP ---
FIRST TRIMESTER OB ULTRASOUND: 11/28/2018. Clinical history: First trimester bleeding. Spotting after a pelvic exam this a.m. Comparison: 11/13/2018. Findings: There is a single intrauterine gestational sac in the body and fundus of the uterus. There is a pole with crown-rump length of 2.1 cm. This corresponds to 8 weeks 5 days and matches that dating from initial OB ultrasound. This gives EDC 07/05/2019. heart rate 168 and regular. No subchorionic bleed is seen. The right ovary measures 3.6 x 4 x 2 cm and has a 2.2 cm corpus luteum within. Normal Doppler tracing reveals resistive index of 0.55. No adjacent pelvic free fluid. High-resolution images demonstrate a yolk sac adjacent to the pole within this gestational sac. Left ovary is 3.2 x 2.3 x 2.6 cm. It also shows normal Doppler tracing with resistive index of 0.6. No adjacent free fluid. Impression: 1. Single intrauterine gestation at 8 weeks 5 days by crown-rump length giving EDC 07/05/2019. heart rate 168 and regular. No subchorionic bleed. 2. There is a 2.3 cm presumed corpus luteum cyst right ovary, left ovary normal. No pelvic free fluid. Both ovaries show normal Doppler tracing. Electronically Signed by Lucho Conner MD 11/28/2018 05:46 P
== END 2018-11-28 09:30 | disposition home or self-care (01) ==
LOC: M ED 07:01
DX: O26.891 Other specified pregnancy related conditions, first trimester (principal); R10.2 Pelvic and perineal pain; O23.591 Infection of other part of genital tract in pregnancy, first trimester; O99.341 Other mental disorders complicating pregnancy, first trimester; F32.9 Major depressive disorder, single episode, unspecified; F41.9 Anxiety disorder, unspecified; F20.9 Schizophrenia, unspecified; O99.511 Diseases of the respiratory system complicating pregnancy, first trimester; G47.33 Obstructive sleep apnea (adult) (pediatric); O99.351 Diseases of the nervous system complicating pregnancy, first trimester; R51 Headache; O99.331 Smoking (tobacco) complicating pregnancy, first trimester; F17.210 Nicotine dependence, cigarettes, uncomplicated; Z3A.08 8 weeks gestation of pregnancy; J30.89 Other allergic rhinitis; Z91.048 Other nonmedicinal substance allergy status; Z91.040 Latex allergy status; Z79.899 Other long term (current) drug therapy; Z79.2 Long term (current) use of antibiotics

== ENCOUNTER → 2018-12-01 | Outpatient (CLI) | payer OTHER ==
[~2018-12-01] MED LIST changes: +ONDA4TAB5 PO; +PRENTAB55 PO
[2018-12-01 15:56] LABS: BASO # 0.1 10^3/uL (0.0-0.2); BASO % 0.4 % (0.0-1.0); EOS # 0.2 10^3/uL (0.0-0.50); HEMATOCRIT 38.9 % (36.0-47.0); HEMOGLOBIN 13.6 g/dl (12.0-15.5); LYMPH # 1.9 10^3/uL (1.5-6.5); LYMPH % 12.1 % (24.0-44.0); MEAN CORPUSCULAR HEMOGLOBIN 28.9 pg (27.0-33.0); MEAN CORPUSCULAR VOLUME 82.8 fl (80.0-96.0); MONO # 0.9 10^3/uL (0.0-0.8); NEUTROPHILS # 12.2 10^3/uL (1.8-7.7); PLATELET COUNT, AUTOMATED 390 10^3/uL (150-450); WHITE BLOOD COUNT 15.3 10^3/uL (4.0-10.0)
[2018-12-01 17:16] LABS: CHLAMYDIA DNA AMPLIFICATION NEGATIVE (NEGATIVE); GC DNA AMPLIFICATION NEGATIVE (NEGATIVE)
[2018-12-04 11:41] LABS: HEPATITIS C VIRUS ABY INDEX < 0.0 INDEX (<0.8); HIV 1&2 SCREEN CENTAUR NEGATIVE (NEGATIVE); RUBELLA IgG QUALITATIVE IMMUNE (IMMUNE)
== END ==
LOC: M LAB 15:17
PROVIDERS: ATTEND Specialist
DX: Z34.81 Encounter for supervision of other normal pregnancy, first trimester (principal); Z3A.08 8 weeks gestation of pregnancy

== ENCOUNTER → 2018-12-12 | Outpatient (REF) | payer OTHER | LOC: M LAB REF 17:05 | PROVIDERS: ATTEND Specialist | DX: Z34.81 Encounter for supervision of other normal pregnancy, first trimester (principal); Z3A.00 Weeks of gestation of pregnancy not specified ==

== ENCOUNTER 2018-12-27 14:04 | Emergency (ER) | payer OTHER ==
[~2018-12-27] VITALS: Ht 149.9 cm; Wt 95.9 kg
[2018-12-27] MEDS ORDERED: ONDANSETRON 4 MG ORAL DISINTEGRATING TAB (Q0162 PER 1MG) PO ONE (15:00)
[2018-12-27 15:06] LABS: INFLUENZA A AMPLIFICATION NEGATIVE (NEGATIVE); INFLUENZA B AMPLIFICATION NEGATIVE (NEGATIVE)
[2018-12-27] MEDS ORDERED: ONDA4TAB6 PO (15:19)
[2018-12-27] MEDS ORDERED: VENTAER INH (15:30)
[2018-12-27 15:35] VITALS: BP 117/65
[2018-12-27] MEDS ORDERED: ACETAMINOPHEN TAB 650MG DOSE (2X325MG) PO ONE (15:45)
== END 2018-12-27 15:40 | disposition home or self-care (01) ==
LOC: M ED 14:04
DX: O99.511 Diseases of the respiratory system complicating pregnancy, first trimester (principal); J06.9 Acute upper respiratory infection, unspecified; Z3A.12 12 weeks gestation of pregnancy; E28.2 Polycystic ovarian syndrome; J30.2 Other seasonal allergic rhinitis; Z91.040 Latex allergy status; Z91.048 Other nonmedicinal substance allergy status; F17.210 Nicotine dependence, cigarettes, uncomplicated
CPT/HCPCS: 87631; 87880; 99284; Q0162

== ENCOUNTER 2019-01-07 18:50 | Emergency (ER) | payer OTHER ==
[~2019-01-07] VITALS: Ht 149.9 cm; Wt 95.0 kg
[~2019-01-07 18:50] MED LIST changes: +ONDA4TAB6 PO; +TRAZ1TAB36 PO; -TRAZ25TA PO; +VENTAER INH
[2019-01-07 19:53] LABS: BASO % 0.3 % (0.0-1.0); EOS # 0.2 10^3/uL (0.0-0.50); EOS % 1.4 % (0.0-3.0); HEMATOCRIT 38.9 % (36.0-47.0); HEMOGLOBIN 13.6 g/dl (12.0-15.5); LYMPH # 1.9 10^3/uL (1.5-6.5); LYMPH % 16.6 % (24.0-44.0); MEAN CORPUSCULAR HEMOGLOBIN 28.7 pg (27.0-33.0); MEAN CORPUSCULAR VOLUME 82.1 fl (80.0-96.0); MONO # 0.7 10^3/uL (0.0-0.8); NEUTROPHILS # 8.6 10^3/uL (1.8-7.7); NEUTROPHILS % 75.1 % (36.0-66.0); PLATELET COUNT, AUTOMATED 330 10^3/uL (150-450); RED BLOOD COUNT 4.74 10^6/uL (4.00-5.40); WHITE BLOOD COUNT 11.5 10^3/uL (4.0-10.0)
[2019-01-07 20:30] LABS: BLOOD UREA NITROGEN 4 MG/DL (7-18); CALCIUM LEVEL 8.5 MG/DL (8.5-10.1); CARBON DIOXIDE LEVEL 23 MEQ/L (21-32); CHLORIDE LEVEL 106 MEQ/L (98-107); CREATININE FOR GFR 0.43 MG/DL (0.55-1.30); GLOMERULAR FILTRATION RATE > 60.0 (>60); GLUCOSE, FASTING 87 MG/DL (70-100); HCG, SERUM QUANTITATIVE 31021 MIU/ML; POTASSIUM SERUM 3.9 MEQ/L (3.5-5.1); SODIUM LEVEL 138 MEQ/L (136-145)
--- NOTE | 2019-01-07 21:25 | REPVR ---
EXAM: US First Trimester, Transabdominal EXAM DATE/TIME: 01/07/2019 8:18 PM CLINICAL HISTORY: 28 years old, female; Signs and symptoms; Lmp or gestational age (in weeks): 14w 3 d; Antepartum complications; Bleeding; ; Additional info: Vag bleeding TECHNIQUE: Imaging protocol: Real-time transabdominal obstetrical ultrasound of the maternal pelvis and a first trimester , less than 14 weeks 0 days, with image documentation. COMPARISON: US OBS FOLL UP OR REPEAT EACH GES 12/13/2016 2:13 PM FINDINGS: Biometry BPD = 2.91 cm; Estimated Menstrual Age = 15 W2D; (14 W1D-16 W 3D) HC = 11.24 cm; Estimated Menstrual Age = 15 W3D; (14 W2D-16 W5D) AC = 8.67 cm; Estimated Menstrual Age = 15 W0D; (13 W-2D-16 W 4 D) FL = 1.36 cm; Estimated Menstrual Age = 14 W0D; (12 W4D-15 W 3D) HR = 149 bpm HC/AC = 1.3 (1.11-1.30) Estimated weight = 3 ounces (48th percentile) Cervix = 5.78 cm and closed Placenta posterior and free of the cervical os Survey Two-vessel cord = normal Maternal: The right ovary measures 4 x 2.8 x 3 cm and contains a complex follicle measuring 2.2 cm in maximum diameter. Venous and arterial flow seen in the right ovary on color Doppler examination. The left ovary measures 2.7 x 3 x 2.3 cm. Venous and arterial blood flow seen in the left ovary on color Doppler and postoperative examination. IMPRESSION: Single live intrauterine with an estimated menstrual age of 14 weeks and 6 days. This comparison expected gestational age of 14 weeks and 0 days based on ultrasound dated 11/13/2018. Expected date of delivery 07/05/2019. Electronically signed by: Alyson Flores On 01/07/2019 21:25:40 PM
[2019-01-07 22:00] VITALS: BP 120/66
[2019-01-07 23:29] LABS: CHLAMYDIA DNA AMPLIFICATION NEGATIVE (NEGATIVE); GC DNA AMPLIFICATION NEGATIVE (NEGATIVE)
== END 2019-01-07 22:07 | disposition home or self-care (01) ==
LOC: M ED 18:50
DX: O20.0 Threatened abortion (principal); O26.852 Spotting complicating pregnancy, second trimester; Z3A.14 14 weeks gestation of pregnancy; O99.282 Endocrine, nutritional and metabolic diseases complicating pregnancy, second trimester; E28.2 Polycystic ovarian syndrome; O99.332 Smoking (tobacco) complicating pregnancy, second trimester; F17.210 Nicotine dependence, cigarettes, uncomplicated; Z91.048 Other nonmedicinal substance allergy status; Z91.040 Latex allergy status; Z88.8 Allergy status to other drugs, medicaments and biological substances

== ENCOUNTER → 2019-02-01 | Outpatient (CLI) | payer OTHER ==
--- NOTE | 2019-02-01 16:29 | REP ---
Obstetric sonography: History: Supervision of for anatomy. Findings: Scanning through the gravid uterus demonstrates a viable single intrauterine gestation in a cephalic lie. motion is observed and heart rate is recorded at 147 beats per minute. A fundal and right lateral placenta is seen grade zero without evidence of previa or abruption. Amniotic fluid is subjectively normal. Closed cervical length is measured at 3.7 cm viewed transabdominally. Umbilical cord is seen across the shoulders. Exam quality was inhibited some degree by position and maternal body habitus. Small bilateral chorioid plexus cysts are seen in the head. The following anatomic structures are less than optimally visualized today: face and profile, lungs, four-chamber heart with outflow tract views, kidneys, spine. The following anatomic structures are identified and felt to be unremarkable: cranium, cavum, cerebellum and posterior fossa, diaphragm, left-sided stomach, abdominal wall cord insertion, three-vessel cord, urinary bladder, upper and lower extremities. Biometry chart: BPD 4.3 cm 18 weeks 6 days Head circumference 15.9 cm 18 weeks 5 days Abdominal circumference 13.4 cm 18 weeks 6 days Femur length 2.6 cm 17 weeks 6 days Humeral length 2.7 cm 18 weeks 6 days HC/AC ratio normal 1.19, cephalic index normal 0.75 estimated weight 240 grams, 0 pounds 8 ounces, 64th percentile for 18 weeks 0 days. Impression: Viable single intrauterine gestation at 17 weeks 4 days by today's composite criteria. Expected gestational age estimate based on prior sonography is 17 weeks 4 days. HENNA by prior sonography July 08, 2019. anatomic survey is incomplete. Electronically Signed by Seven Meyer MD 02/01/2019 04:33 P
== END ==
LOC: M RAD 14:01
PROVIDERS: ATTEND Specialist
DX: Z34.82 Encounter for supervision of other normal pregnancy, second trimester (principal); Z3A.17 17 weeks gestation of pregnancy

== ENCOUNTER → 2019-04-17 | Outpatient (CLI) | payer OTHER ==
[~2019-04-17] MED LIST changes: +ZANT150T40 PO; -ZANTTAB PO
[2019-04-17 19:36] LABS: HEMOGLOBIN A1c 6.2 %
== END ==
LOC: M SMT 13:41
PROVIDERS: ATTEND Specialist
DX: O24.112 Pre-existing type 2 diabetes mellitus, in pregnancy, second trimester (principal); Z3A.00 Weeks of gestation of pregnancy not specified

== ENCOUNTER 2019-04-30 19:30 | Outpatient (CLI) | payer OTHER ==
[~2019-04-30] VITALS: Ht 149.9 cm; Wt 96.0 kg
[2019-04-30 19:53] VITALS: BP 116/68
[2019-04-30 20:17] LABS: APPEARANCE, URINE HAZY (CLEAR); BACTERIA, URINE AUTO NEGATIVE (NEGATIVE); BILIRUBIN, URINE AUTO NEGATIVE (NEGATIVE); BLOOD, URINE BLOOD 1+ (NEGATIVE); COLOR, URINE YELLOW (YELLOW); GLUCOSE, URINE (UA) AUTO 3+ mg/dL (NEGATIVE); KETONE, URINE AUTO TRACE mg/dL (NEGATIVE); LEUKOCYTE ESTERASE, URINE AUTO NEGATIVE (NEGATIVE); MUCUS, URINE SMALL (NEGATIVE); NITRITE, URINE AUTO NEGATIVE (NEGATIVE); PROTEIN, URINE AUTO 2+ mg/dL (NEGATIVE); RBC, URINE AUTO 15 /HPF (0-3); SPECIFIC GRAVITY URINE AUTO 1.036 (1.002-1.035); SQUAMOUS EPITHELIAL CELL UR AU 10 /HPF (0-6); WBC, URINE AUTO 4 /HPF (0-3)
[2019-04-30] MEDS ORDERED: PHEN-593 PO (20:40)
[2019-04-30] MEDS ORDERED: NITR100C2 PO (20:40)
[2019-04-30] MEDS ORDERED: PHENAZOPYRIDINE 100 MG TAB PO ONE (20:45)
[2019-04-30] MEDS ORDERED: NITROFURANTOIN (MACROBID) 100 MG CAP PO ONE (20:45)
--- NOTE | 2019-04-30 21:22 | IPNPDOC ---
Text Note Date of Service The patient was seen on 04/30/19. NOTE Subjective: Patient is a 28-year-old female who is a at 30 weeks 4 days gestation with an HENNA of 07/05/19 based off of her LMP and consistent with her 1st trimester ultrasound. Her has been complicated by a prior section, being a smoker, PCOS, probable gestational diabetes and infertility. She presents to L&D with complaints of dysuria with initiating stream and ending stream. Complaining of suprapubic pain and low dull back pain that started this afternoon. She denies contractions or vaginal bleeding. She reports active movement. Medical history: PCOS, obesity, GDM Surgical history: section 2017, tympanostomy Family history: diabetes, heart disease, HTN, schizophrenic Social history: Single. Patient is a smoker. She denies history of drug use or abuse. Objective: Vitals and labs: see below. FHR is 120, moderate variability, positive accelerations, no decelerations. Contractions every 2-7 minutes. General: A+O x3. Respiratory: regular rate. Abdomen: gravid. Non-tender to touch. Palpates soft. Negative CVA tenderness. SSE: with cervix that appears thick and closed. Wet prep done and negative. OSBALDO negative and whiff test negative. SVE: closed/thick/high, anterior, moderate, no show. Assessment: IUP 30.4 weeks, UTI Plan: Patient encouraged to increase her fluid intake. Will treat for UTI due to symptoms. VS,Fishbone, I+O VS, Fishbone, I+O Vital Signs Date Time Temp Pulse Resp B/P (MAP) Pulse Ox O2 Delivery O2 Flow Rate FiO2 04/30/19 19:53 98.7 89 18 116/68 (84) Item Value Date Time Urine Color YELLOW 04/30/191944 Urine Appearance HAZY 04/30/191944 Urine pH 5.0 UNITS 04/30/191944 Urine Specific [place] 1.036 04/30/191944 Urine Protein 2+ mg/dL H 04/30/191944 Urine Glucose (UA) 3+ mg/dL H 04/30/191944 Urine Ketones TRACE mg/dL H 04/30/191944 Urine Blood 1+ H 04/30/191944 Urine Nitrite NEGATIVE 7/22/19 1945 Urine Bilirubin NEGATIVE 04/30/191944 Urine Urobilinogen 2.0 mg/dL H 04/30/191944 Urine Leukocyte Esterase NEGATIVE 04/30/191944 Urine RBC (Auto) 15 /HPF H 04/30/191944 Urine WBC (Auto) 4 /HPF H 04/30/191944 Urine Hyaline Casts (Auto) 0 /LPF 04/30/191944 Urine Bacteria (Auto) NEGATIVE 04/30/191944 Urine Squamous Epithelial Cells 10 /HPF 04/30/191944 Urine Mucus (Auto) SMALL 04/30/191944 ADELAIDA WOODSON CNM Apr 30, 2019 21:22
== END 2019-04-30 20:56 | disposition home or self-care (01) ==
LOC: M LDO 19:30
PROVIDERS: ATTEND Advanced Practice Midwife
DX: O26.893 Other specified pregnancy related conditions, third trimester (principal); M54.5 Low back pain; O99.333 Smoking (tobacco) complicating pregnancy, third trimester; F17.210 Nicotine dependence, cigarettes, uncomplicated; O23.43 Unspecified infection of urinary tract in pregnancy, third trimester; O47.03 False labor before 37 completed weeks of gestation, third trimester; Z3A.30 30 weeks gestation of pregnancy

== ENCOUNTER 2019-05-11 05:54 | Outpatient (CLI) | payer OTHER ==
[~2019-05-11] VITALS: Ht 149.9 cm; Wt 98.1 kg
[~2019-05-11 05:54] MED LIST changes: +NITR100C2 PO; +PHEN-593 PO
[2019-05-11 06:32] VITALS: BP 122/68
[2019-05-11] MEDS ORDERED: FLUCONAZOLE 50MG TABLET PO ONE (07:45)
[2019-05-11] MEDS ORDERED: LACTATED RINGER'S 1000 ML IV ONE (07:45)
[2019-05-11 08:03] VITALS: BP 117/69
[2019-05-11 08:06] LABS: HEMATOCRIT 35.4 % (36.0-47.0); MEAN CORPUSCULAR HEMOGLOBIN 29.1 pg (27.0-33.0); MEAN CORPUSCULAR HGB CONC 33.9 g/dl (32.0-36.5); MEAN CORPUSCULAR VOLUME 85.7 fl (80.0-96.0); PLATELET COUNT, AUTOMATED 360 10^3/uL (150-450); RED BLOOD COUNT 4.13 10^6/uL (4.00-5.40); WHITE BLOOD COUNT 12.9 10^3/uL (4.0-10.0)
--- NOTE | 2019-05-11 08:08 | IPN ---
DATE: 05/11/2019 Mary Carmen is a 28-year-old, 6, para 1-0-4-1, at 32 and 1/7 weeks gestation, expected date of confinement (EDC) of 07/05/2019 based on last menstrual period and confirmed by first trimester ultrasound. She presents to labor and delivery today with a complaint of low back pain approximately every 10 minutes that started at 0300 and some pelvic pressure. She does deny vaginal bleeding and leakage of fluid. The fetus has been active. Her care was initiated at [facility] in the first trimester. course complicated by a history of gestational diabetes in likely a type 2 diabetic and she is noncompliant with testing her glucose. She has a prior section with a planned repeat. She is a smoker. OBSTETRIC HISTORY: February 2017, 37 weeks gestation, 8 pound male, section, arrest of dilation, due to uncontrolled gestational diabetes. OBSTETRIC LABS: B positive. Antibody screen negative. Rubella immune. VDRL nonreactive. Hepatitis B surface antigen negative. HIV negative. Hepatitis C antibody nonreactive. Gonorrhea and Chlamydia negative. Early hemoglobin A1c on 12/01/2018 was 6.0. PAST MEDICAL HISTORY: Seasonal allergies. Polycystic ovary syndrome (PCOS). Childhood varicella. SURGERIES: section. Tympanostomy. FAMILY HISTORY: Diabetes. Heart disease. Hypertension. Paranoid schizophrenia. Autism. ALLERGIES: POLLEN. PERFUME. NICOTINE PATCH. LATEX. CURRENT MEDICATIONS: Prilosec over the counter, Glyburide 2.5 mg which she is noncompliant with taking, vitamin and also noncompliant with taking. OBJECTIVE: Temperature 98, pulse 77, BP 122/68. heart rate 135 with moderate variability, positive accelerations noted, no decelerations observed at this time. She is erica every 3-6 minutes, they do palpate mild. Sterile Speculum Exam: Cervix appears closed. GBS and a fibronectin were obtained. Sterile Vaginal Exam: Cervix is closed and thinning. Of note, positive discharge significant for Rosaura vulvovaginitis. Finger stick bedside glucose at 217 this morning, it is not quite fasting, she did eat a piece of cheese prior to arrival. ASSESSMENT: Intrauterine at 32 and 1/7 weeks. heart rate Category 1. contractions. Candidiasis. Breech presentation. PLAN: Labs - CBC, hemoglobin A1c, CMP, fibronectin, GBS. Lactated Ringer's IV fluid bolus. Diflucan by mouth for candidiasis. Observe the patient. Likely recheck the cervix. Further plan pending fibronectin results. I did review the plan with the patient and she is agreeable. All of her questions and her partner's questions have been answered.
[2019-05-11 08:33] LABS: ALBUMIN 2.3 GM/DL (3.2-5.2); ALT/SGPT 14 U/L (12-78); BILIRUBIN,TOTAL 0.2 MG/DL (0.2-1.0); BLOOD UREA NITROGEN 7 MG/DL (7-18); CALCIUM LEVEL 8.8 MG/DL (8.5-10.1); CARBON DIOXIDE LEVEL 22 MEQ/L (21-32); CHLORIDE LEVEL 103 MEQ/L (98-107); CREATININE FOR GFR 0.45 MG/DL (0.55-1.30); GLOMERULAR FILTRATION RATE > 60.0 (>60); GLUCOSE, FASTING 197 MG/DL (70-100); POTASSIUM SERUM 4.1 MEQ/L (3.5-5.1); SODIUM LEVEL 134 MEQ/L (136-145); TOTAL PROTEIN 6.1 GM/DL (6.4-8.2)
[2019-05-11 08:34] LABS: HEMOGLOBIN A1c 7.3 %
[2019-05-11] MEDS ORDERED: LR 1,000 ML IV SCH (09:02)
[2019-05-11 09:54] VITALS: BP 113/58
[2019-05-11 11:12] VITALS: BP 119/59
--- NOTE | 2019-05-11 12:10 | REP ---
Clinical: Diabetes. well-being. Comparison: 05/04/2019 . Findings: Examination demonstrates a single live intrauterine in breech presentation. motion is identified by technologist. Placenta is noted posterior fundal and grade III without evidence for placenta previa or abruption. Amniotic fluid volume is normal. Cervix measures 3.4 cm in length and appears closed. No evidence for nuchal cord. Gestational age by LMP 32 weeks 1 day with HENNA 07/05/2019 . FHR equals 149 beats per minute. BPP: 8/8 Umbilical cord SD ratio: 2.94 Amniotic fluid index: 21.6 cm Impression: Single live advanced gestation in breech presentation demonstrating normal amniotic fluid volume and biophysical profile score. Electronically Signed by Aakash Esteban MD 05/11/2019 12:01 P
[2019-05-11] MEDS ORDERED: glyBURIDE 2.5 MG TAB PO ONE (13:00)
[2019-05-11] MEDS ORDERED: GLYB25TA PO ×2 (13:21→13:36)
--- NOTE | 2019-05-11 13:30 | IPNPDOC ---
Text Note Date of Service The patient was seen on 05/11/19. NOTE Outpatient Reviewed pt status with Dr Hillman. HbA1C 7.3 with consistently elevated blood glucose levels BPP 05/[address] Hillman, pt is agreeable to QID testing and initiation of glyburide 2.5mg BID Instructed pt in recording glucose results daily, bringing to every appt. Instructed pt to call office Tuesday for dietary counseling appt with Susanne this week Instructed pt to keep her appt with Milagros Tuesday, will have NST at that time Reviewed risks of untreated diabetes to pt and including demise. Pt and partner state she will "do her best" to remember testing and compliance now that they are in a stable living situation. Discharged home with instructions, dietary education and glucose log. VS,Fishbone, I+O VS, Fishbone, I+O Laboratory Tests 05/11/19 07:57 Red Blood Count 4.13, Mean Corpuscular Volume 85.7, Mean Corpuscular Hemoglobin 29.1, Mean Corpuscular Hemoglobin Concent 33.9, Red Cell Distribution Width 13.8, Calcium Level 8.8, Aspartate Amino Transf (AST/SGOT) 9, Alanine Aminotransferase (ALT/SGPT) 14, Alkaline Phosphatase 117, Total Bilirubin 0.2, Total Protein 6.1 L, Albumin 2.3 L Vital Signs Date Time Temp Pulse Resp B/P (MAP) Pulse Ox O2 Delivery O2 Flow Rate FiO2 05/11/19 11:12 98.2 100 16 119/59 (79) Alise Carmichael CNM May 11, 2019 13:30
== END 2019-05-11 13:36 | disposition home or self-care (01) ==
LOC: M LDO 05:54
PROVIDERS: ATTEND Advanced Practice Midwife
DX: O99.810 Abnormal glucose complicating pregnancy (principal); O23.593 Infection of other part of genital tract in pregnancy, third trimester; B37.3 Candidiasis of vulva and vagina; Z3A.32 32 weeks gestation of pregnancy; O99.333 Smoking (tobacco) complicating pregnancy, third trimester

== ENCOUNTER 2019-06-04 14:28 | Outpatient (CLI) | payer OTHER ==
[~2019-06-04] VITALS: Ht 149.9 cm; Wt 104.8 kg
[~2019-06-04 14:28] MED LIST changes: +GLYB25TA PO; +ONDA-83 PO; -ONDA4TAB5 PO
[2019-06-04 14:42] VITALS: BP 126/62
[2019-06-04] MEDS ORDERED: MAPA500T2 PO (14:50)
[2019-06-04] MEDS ORDERED: BETAMETHASONE SOLUSPAN 6MG/ML INJ 5ML (J0702) IM SCH (15:00)
[2019-06-04] MEDS ORDERED: HUMA100I3 SC (15:04)
[2019-06-04] MEDS ORDERED: NOVOINJ12 SC ×2 (15:08)
[2019-06-04] MEDS ORDERED: NOVOINJ13 SC ×2 (15:08)
--- NOTE | 2019-06-04 15:40 | IPN ---
DATE: 06/04/2019 Mary Carmen is a 28-year-old 6, para 1-0-4-1 at 35-4/7 weeks gestation with an EDC of 07/05/2019 based on last period and confirmed by first trimester ultrasound. She presents to labor and delivery for betamethasone injection today for lung maturity following her routine office appointment with Dr. Edwin Valentin. She does deny contractions, vaginal bleeding or leakage of fluid. The fetus has been active. Her care was initiated at [facility] in the first trimester. course complicated by a history of gestational diabetes, probable type 2 diabetes prior to this , she has been noncompliant with testing and management, prior section. OBSTETRICAL HISTORY: February 2017, 37 weeks, 8 pounds male section for arrest of dilation and gestational diabetes mellitus. OBSTETRICAL LABORATORIES: B+, antibody screen negative, rubella immune, VDRL nonreactive. Urine culture no growth. Hep B surface antigen negative, HIV negative, hepatitis C antibody nonreactive. Gonorrhea and chlamydia negative. 04/17/2019 hemoglobin A1c 6.2. Group B streptococcus (GBS) negative. MEDICAL HISTORY: Gestational diabetes and probable preexisting type 2 diabetes, seasonal allergies, polycystic ovarian syndrome, childhood varicella. SURGERIES: section and tympanostomy. FAMILY HISTORY: Diabetes, heart disease, hypertension, paranoid schizophrenia. SOCIAL HISTORY: The patient is single; however, partner is at bedside and supportive. She is a smoker, pack and half per day. She denies alcohol and drug use. No history of any sexually transmitted infections. Denies history of abuse; physical, sexual and emotional. ALLERGIES: POLLEN, PERFUME, NICOTINE, LATEX. CURRENT MEDICATIONS: - omeprazole - insulin as prescribed by Dr. Edwin Valentin - vitamin. OBJECTIVE: Temperature 96.9, pulse 96, respirations 18, blood pressure is 126/62. She has just left the office where she had antepartum testing performed. Her NST was category 1, signed off by Dr. Edwin Valentin. Most recent growth ultrasound of 05/21/2019 with an estimated weight of 2947 grams, 51st percentile, KAPIL 24.6, polyhydramnios. ASSESSMENT: 1. Intrauterine at 35-4/7 weeks. heart rate category 1 in the office, no need for monitoring here at labor and delivery. 2. Uncontrolled diabetes during . Insulin-dependent. PLAN: Per consult with Dr. Edwin Valentin. Betamethasone 12 mg subcutaneous, reviewed signs and symptoms of labor, delivery, movement counts and access to care. The patient is scheduled for repeat section in the future. She is to return to labor and delivery unit tomorrow and 1500 hours for betamethasone dose #2. All her questions have been answered and she agrees with the plan of care. KYLE
[2019-06-07] MEDS ORDERED: OMEP-218 PO (08:08)
[2019-06-07] MEDS ORDERED: CYCL10TA PO (08:08)
== END 2019-06-04 15:00 | disposition home or self-care (01) ==
LOC: M LDO 14:28
PROVIDERS: ATTEND Advanced Practice Midwife
DX: O36.8930 Maternal care for other specified fetal problems, third trimester, not applicable or unspecified (principal); Z36.84 Encounter for antenatal screening for fetal lung maturity; O24.414 Gestational diabetes mellitus in pregnancy, insulin controlled; Z79.4 Long term (current) use of insulin; O99.53 Diseases of the respiratory system complicating the puerperium; J30.2 Other seasonal allergic rhinitis; Z91.040 Latex allergy status; Z88.8 Allergy status to other drugs, medicaments and biological substances; Z91.09 Other allergy status, other than to drugs and biological substances; Z3A.35 35 weeks gestation of pregnancy
CPT/HCPCS: 59025; 96372; J0702

== ENCOUNTER 2019-06-12 05:06 | Inpatient (IN) | payer OTHER ==
[~2019-06-12] VITALS: Ht 149.9 cm; Wt 105.5 kg
[2019-06-12] VITALS (9 sets, daily range): BP systolic 98–126; BP diastolic 54–80
[~2019-06-12 05:06] MED LIST changes: +HUMA100I3 SC; +MAPA500T2 PO; +NOVOINJ12 SC; +NOVOINJ13 SC; +OMEP-218 PO; -ONDA-83 PO; +ONDA4TAB5 PO
[2019-06-12] MEDS ORDERED: BICITRA 30ML SOLN UDC As Ordered ONE (05:37)
[2019-06-12] MEDS ORDERED: ceFAZolin 2 GM/D5W 50 ML IV BAG (J0690 PER 500MG) As Ordered ONE (05:38)
[2019-06-12] MEDS ORDERED: LR 1,000 ML IV SCH (05:45)
[2019-06-12] MEDS ORDERED: BICITRA 30ML SOLN UDC PO ONE (05:45)
[2019-06-12 05:59] LABS: HEMATOCRIT 37.2 % (36.0-47.0); HEMOGLOBIN 12.5 g/dl (12.0-15.5); MEAN CORPUSCULAR HEMOGLOBIN 27.7 pg (27.0-33.0); MEAN CORPUSCULAR HGB CONC 33.6 g/dl (32.0-36.5); MEAN CORPUSCULAR VOLUME 82.5 fl (80.0-96.0); PLATELET COUNT, AUTOMATED 406 10^3/uL (150-450); RED BLOOD COUNT 4.51 10^6/uL (4.00-5.40); WHITE BLOOD COUNT 12.2 10^3/uL (4.0-10.0)
[2019-06-12] MEDS ORDERED: OXYC1TAB23 PO (07:04)
[2019-06-12] MEDS ORDERED: IBUP-1022 PO (07:05)
[2019-06-12] MEDS ORDERED: OXYTOCIN INJ 10 UNITS/ML VIAL (J2590) As Ordered ONE ×2 (07:17→07:18)
[2019-06-12] MEDS ORDERED: MORPHINE PRES-FREE INJ 10 MG/10 ML VIAL (J2274) As Ordered ONE (07:19)
[2019-06-12] MEDS ORDERED: METOCLOPRAMIDE INJ 10MG/2ML VIAL (J2765) As Ordered ONE (07:22)
[2019-06-12] MEDS ORDERED: dexameTHASONE 4 MG/ML 1ML VIAL (J1100) As Ordered ONE (07:22)
[2019-06-12] MEDS ORDERED: ONDANSETRON 4MG/2ML VIAL (J2405) As Ordered ONE (07:23)
[2019-06-12] MEDS ORDERED: NALOXONE INJ 0.4 MG/1 ML VIAL (J2310) IV PRN ×2 (07:51)
[2019-06-12] MEDS ORDERED: METOCLOPRAMIDE INJ 10MG/2ML VIAL (J2765) IV PRN (07:51)
[2019-06-12] MEDS ORDERED: ONDANSETRON 4MG/2ML VIAL (J2405) IV PRN ×3 (07:51→09:45)
[2019-06-12] MEDS ORDERED: diphenhydrAMINE INJ 50MG/ML VIAL (J1200) IV PRN (07:51)
[2019-06-12] MEDS ORDERED: NALBUPHINE HCL 10 MG/ML AMP (J2300) IV PRN ×2 (07:51→09:45)
[2019-06-12] MEDS ORDERED: PHENYLephrine HCL 500 MCG/5 ML (100MCG/ML) SYRINGE (J2370) As Ordered ONE ×2 (07:54→08:13)
[2019-06-12] MEDS: LR 1,000 ML IV SCH ×2 (09:05→17:05)
[2019-06-12] MEDS ORDERED: OXYTOCIN DRIP 30 UNITS in APPROPRIATE DILUENT 1 EA IV SCH (09:05)
[2019-06-12] MEDS ORDERED: DOCUSATE SODIUM 100 MG CAP PO PRN (09:15)
[2019-06-12] MEDS ORDERED: RHOGAM 300 MCG (1500 IU) INJ (J2790) IM SCH (09:15)
[2019-06-12] MEDS ORDERED: MEASLES,MUMPS,RUBELLA VACCINE INJ (MMR-II) (90707) SC SCH (09:15)
[2019-06-12] MEDS ORDERED: PERCOCET 5MG/325MG TAB PO PRN (09:15)
[2019-06-12] MEDS ORDERED: OXYTOCIN 30 UNITS IN 0.9% NaCl 500ML IV BAG (J2590) As Ordered ONE (09:38)
[2019-06-12] MEDS ORDERED: fentaNYL 100 MCG/2 ML INJECTION (J3010) IV PRN (09:45)
[2019-06-12] MEDS ORDERED: KETOROLAC 30 MG/ML VIAL (J1885) IV PRN (09:45)
[2019-06-12] MEDS ORDERED: KETOROLAC 30 MG/ML VIAL (J1885) As Ordered ONE (10:05)
[2019-06-12] MEDS ORDERED: ALBUTEROL SULFATE 2.5 MG/0.5 ML INH NEB SOLN NEB ONE (11:00)
[2019-06-12] MEDS ORDERED: SLF 3 ML SYR IV PRN (11:15)
[2019-06-12] MEDS: SLF 3 ML SYR IV SCH ×2 (13:26→21:56)
--- NOTE | 2019-06-12 15:41 | RO ---
DATE OF PROCEDURE: 06/12/2019 PREDELIVERY DIAGNOSES: 36-5/7 weeks gestation, poorly controlled type 2 diabetes, prior section. POSTOPERATIVE DIAGNOSES: 36-5/7 weeks gestation, poorly controlled type 2 diabetes, prior section. PROCEDURE: Repeat low transverse section. SURGEON: Edwin Valentin MD ASSISTANTS: She Tony CNM and Ale Marcum DO. ANESTHESIA: Spinal. ESTIMATED BLOOD LOSS: 500 mL. URINE OUTPUT: 100 mL. FINDINGS: 8 pound 3 ounce (3710 gram) male infant, score 9 and 9. Polyhydramnios present. Normal uterus, fallopian tubes and ovaries. OPERATIVE SUMMARY: Patient taken to the operating room where spinal anesthesia was induced. She was prepped and draped in sterile fashion in the supine position. A Zambrano catheter was placed. A Pfannenstiel skin incision was made with the scalpel and carried through to the fascia. The fascia was nicked and extended. The fascia was dissected off the rectus muscles. The peritoneal cavity was entered. A bladder flap was created. A curvilinear incision was made in the lower uterine segment until bulging membranes were noted. This was extended manually. Membranes were ruptured with clear fluid noted. There was an excessive amount of amniotic fluid noted. The was delivered from the vertex position without difficulty. The cord was doubly clamped and cut. The was handed off to the awaiting nurses. The placenta was expressed. The uterus was exteriorized and cleared of clots and debris. The uterine incision was closed with #0 Vicryl in a running locked fashion. A second imbricating layer of #0 Vicryl was placed. The uterus was placed back in the abdominal cavity. The peritoneum was closed with #2-0 Vicryl in a running fashion. The fascia was closed with #0 Vicryl in a running fashion. The deep layer was closed with #2-0 chromic. The skin was closed with #4-0 Monocryl subcuticular sutures. Sponge, instrument, and needle counts were correct. She Tony CNM and Ale Marcum DO assisted in all aspects of procedure from beginning to end. They helped create each layer of the incision. They helped expel the fetus and subsequently close each layer.
[2019-06-12] MEDS: KETOROLAC 30 MG/ML VIAL (J1885) IV SCH ×2 (16:22→21:56)
[2019-06-13] MEDS: PERCOCET 5MG/325MG TAB PO PRN ×3 (01:16→18:50)
[2019-06-13 02:09] VITALS: BP 99/58
[2019-06-13] MEDS ORDERED: ALBUTEROL SULFATE 2.5 MG/0.5 ML INH NEB SOLN NEB ONE (02:45)
[2019-06-13] MEDS ORDERED: guaiFENesin DM LIQ 10ML UD PO PRN (02:45)
[2019-06-13] MEDS: KETOROLAC 30 MG/ML VIAL (J1885) IV SCH (05:24)
[2019-06-13 05:33] VITALS: BP 106/56
[2019-06-13] MEDS: SLF 3 ML SYR IV SCH ×3 (06:13→20:36)
--- NOTE | 2019-06-13 06:17 | IPNPDOC ---
Text Note Date of Service The patient was seen on 06/13/19. NOTE Postop Day 1 s/p repeat LTCS; uncomplicated S: pain well controlled, lochia and bleeding decreasing, voiding spontaneously, ambulating without assistance, tolerating regular diet. Formula feeding.Has been coughing O: vitals stable Heart: RRR, no murmurs Lungs: CTA bilaterally Abd: Fundus firm @ U Ext: no edema, nontender, negative Bo's bilaterally A/P: 28 yo G6 now P2. day 1 s/p repeat LTCS. Hemodynamically stable, afebrile, adequate pain control. Recovering well. -Routine postoperative care and advancement. -Anticipate discharge tomorrow VS,Fishbone, I+O VS, Fishbone, I+O Vital Signs Date Time Temp Pulse Resp B/P (MAP) Pulse Ox O2 Delivery O2 Flow Rate FiO2 06/13/19 05:54 16 06/13/19 05:33 98.0 83 106/56 (73) 94 I&O- Last 24 Hours up to 6 AM 06/13/19 05:59 Intake Total 2220 ml Output Total 1775 ml Balance 445 ml GME ATTESTATION GME ATTESTATION My faculty preceptor for this patient encounter was physically present during the encounter and was fully available. All aspects of the patient interview, examination, medical decision making process, and medical care plan development were reviewed and approved by the faculty preceptor. The faculty preceptor is aware and concurs with the plan as stated in the body of this note and will attest to such by his/her cosignature. EUGENIO FRANCOIS DO Jun 13, 2019 06:17
[2019-06-13 07:13] LABS: HEMATOCRIT 30.9 % (36.0-47.0); MEAN CORPUSCULAR HEMOGLOBIN 28.1 pg (27.0-33.0); MEAN CORPUSCULAR VOLUME 85.1 fl (80.0-96.0); PLATELET COUNT, AUTOMATED 343 10^3/uL (150-450); RED BLOOD COUNT 3.63 10^6/uL (4.00-5.40); WHITE BLOOD COUNT 15.7 10^3/uL (4.0-10.0)
[2019-06-13] MEDS: PRENATAL VITAMINS CHEWABLE TABLET PO SCH (07:16)
[2019-06-13 07:19] LABS: HEMOGLOBIN 10.2 g/dl (12.0-15.5)
[2019-06-13 10:00] VITALS: BP 107/59
[2019-06-13] MEDS: IBUPROFEN 800 MG TAB PO SCH ×2 (12:05→20:35)
[2019-06-13 14:00] VITALS: BP 131/72
[2019-06-13 18:00] VITALS: BP 120/79
[2019-06-13 22:00] VITALS: BP 120/72
[2019-06-14 02:00] VITALS: BP 122/64
[2019-06-14] MEDS: PERCOCET 5MG/325MG TAB PO PRN ×4 (02:48→22:46)
[2019-06-14] MEDS: SLF 3 ML SYR IV SCH ×2 (05:06→19:29)
[2019-06-14] MEDS: IBUPROFEN 800 MG TAB PO SCH ×3 (05:06→19:29)
[2019-06-14 06:06] VITALS: BP 110/57
--- NOTE | 2019-06-14 06:07 | IPNPDOC ---
Text Note Date of Service The patient was seen on 06/14/19. NOTE Postop Day 2 s/p repeat LTCS; uncomplicated S: pain well controlled, lochia and bleeding decreasing, voiding spontaneously, ambulating without assistance, tolerating regular diet. Formula feeding. Baby in NICU O: vitals stable Heart: RRR, no murmurs Lungs: CTA bilaterally Abd: Fundus firm @ U Ext: no edema, nontender, negative Bo's bilaterally A/P: 28 yo G6 now P2. day 2 s/p repeat LTCS. Hemodynamically stable, afebrile, adequate pain control. Recovering well. -Routine postoperative care and advancement. -Anticipate discharge tomorrow VS,Fishbone, I+O VS, Fishbone, I+O Laboratory Tests 06/13/19 06:58 Red Blood Count 3.63 L, Mean Corpuscular Volume 85.1, Mean Corpuscular Hemoglobin 28.1, Mean Corpuscular Hemoglobin Concent 33.0, Red Cell Distribution Width 13.8 Vital Signs Date Time Temp Pulse Resp B/P (MAP) Pulse Ox O2 Delivery O2 Flow Rate FiO2 06/14/19 03:30 18 06/14/19 02:00 96.5 96 122/64 (83 96 I&O- Last 24 Hours up to 6 AM 06/14/19 06:00 Intake Total 480 ml Balance 480 ml GME ATTESTATION GME ATTESTATION My faculty preceptor for this patient encounter was physically present during the encounter and was fully available. All aspects of the patient interview, examination, medical decision making process, and medical care plan development were reviewed and approved by the faculty preceptor. The faculty preceptor is aware and concurs with the plan as stated in the body of this note and will attest to such by his/her cosignature. EUGENIO FRANCOIS DO Jun 14, 2019 06:07
[2019-06-14] MEDS: PRENATAL VITAMINS CHEWABLE TABLET PO SCH (08:01)
[2019-06-14] MEDS ORDERED: IPRATROPIUM 0.5MG/ALBUTEROL 2.5MG INH SOL UD 3ML (DUONEB)(J7620) NEB PRN (09:00)
[2019-06-14 18:00] VITALS: BP 119/62
[2019-06-15] MEDS: IBUPROFEN 800 MG TAB PO SCH (04:20)
[2019-06-15 06:00] VITALS: BP 129/69
--- NOTE | 2019-06-15 07:46 | DSES ---
DATE OF ADMISSION: 06/12/2019 DATE OF DISCHARGE: 06/15/2019 ADMISSION DIAGNOSES: 36-5/7 weeks gestation. Poorly controlled type 2 diabetes. Prior section. DISCHARGE DIAGNOSES 36-5/7 weeks gestation. Poorly controlled type 2 diabetes. Repeat low transverse section. PROCEDURE: Repeat low transverse section performed 06/12/2019 INDICATION FOR DELIVERY: Poorly controlled type 2 diabetes, history of prior section. HOSPITAL COURSE: The patient was admitted on 06/12/2019 for a repeat low transverse section secondary to poorly controlled type 2 diabetes and polyhydramnios. She delivered an 8 pounds 3 ounces (3710 grams) male infant, scores were 9 and 9. Polyhydramnios was present. Normal uterus, fallopian tubes and ovaries. There were no complications. Her postoperative course was unremarkable. She had adequate return of bladder and bowel function. Her postoperative hemoglobin was 10.2 gm/dL. She was deemed stable for discharge on postoperative day #3. DISPOSITION: Stable. The patient will follow up with Dr. Valentin in 2 weeks. Instructions were reviewed.
[2019-06-15] MEDS: PRENATAL VITAMINS CHEWABLE TABLET PO SCH (08:52)
== END 2019-06-15 10:10 | disposition home or self-care (01) | DRG 540 ==
LOC: M LDI 05:06 → M OBS 10:55
PROVIDERS: ADMIT Specialist; ATTEND Specialist
PROC: 10D00Z1 Extraction of Products of Conception, Low, Open Approach (ICD-10-PCS; principal; 2019-06-12 07:30)
DX: O34.211 Maternal care for low transverse scar from previous cesarean delivery (principal); O24.12 Pre-existing type 2 diabetes mellitus, in childbirth; E11.65 Type 2 diabetes mellitus with hyperglycemia; O40.3XX0 Polyhydramnios, third trimester, not applicable or unspecified; Z3A.36 36 weeks gestation of pregnancy; Z37.0 Single live birth; Z79.4 Long term (current) use of insulin

== ENCOUNTER → 2020-01-13 | Outpatient (CLI) | payer OTHER ==
[~2020-01-13] MED LIST changes: +IBUP-1022 PO; +ONDA-83 PO; -ONDA4TAB5 PO; +OXYC1TAB23 PO
== END ==
LOC: M SLEEP 20:00
PROVIDERS: ATTEND Nurse Practitioner Family
DX: G47.33 Obstructive sleep apnea (adult) (pediatric) (principal)

== ENCOUNTER → 2020-06-25 | Outpatient (CLI) | payer OTHER ==
[~2020-06-25] MED LIST changes: +CYCL-707 PO; -CYCL10TA PO
[2020-06-25 15:38] LABS: BASO # 0.1 10^3/uL (0.0-0.2); BASO % 0.4 % (0.0-1.0); EOS # 0.2 10^3/uL (0.0-0.5); EOS % 1.4 % (0.0-3.0); HEMATOCRIT 37.8 % (36.0-47.0); HEMOGLOBIN 12.9 g/dl (12.0-15.5); LYMPH # 2.7 10^3/uL (1.5-5.0); LYMPH % 20.9 % (24.0-44.0); MEAN CORPUSCULAR HEMOGLOBIN 28.3 pg (27.0-33.0); MEAN CORPUSCULAR HGB CONC 34.1 g/dl (32.0-36.5); MEAN CORPUSCULAR VOLUME 82.9 fl (80.0-96.0); MONO # 0.8 10^3/uL (0.0-0.8); MONO % 6.4 % (0.0-5.0); NEUTROPHILS # 8.9 10^3/uL (1.5-8.5); NEUTROPHILS % 70.4 % (36.0-66.0); PLATELET COUNT, AUTOMATED 351 10^3/uL (150-450); RED BLOOD COUNT 4.56 10^6/uL (4.00-5.40); WHITE BLOOD COUNT 12.7 10^3/uL (4.0-10.0)
[2020-06-25 16:19] LABS: HEMOGLOBIN A1c 5.9 %
[2020-06-25 16:33] LABS: HEPATITIS C VIRUS ABY INDEX 0.2 INDEX (<0.8); HIV 1&2 SCREEN CENTAUR NEGATIVE (NEGATIVE)
[2020-06-25 17:37] LABS: CHLAMYDIA DNA AMPLIFICATION NEGATIVE (NEGATIVE); GC DNA AMPLIFICATION NEGATIVE (NEGATIVE)
== END ==
LOC: M PLALAB 12:33
PROVIDERS: ATTEND Specialist
DX: Z34.00 Encounter for supervision of normal first pregnancy, unspecified trimester (principal); Z36.89 Encounter for other specified antenatal screening

== ENCOUNTER → 2020-09-17 | Outpatient (CLI) | payer OTHER, MEDICAID ==
[~2020-09-17] MED LIST changes: -PHEN-593 PO; +PHEN1TAB73 PO
--- NOTE | 2020-09-17 13:05 | REP ---
INDICATION: ANATOMY. COMPARISON: None. TECHNIQUE: Multiple real-time and Doppler ultrasound images. FINDINGS: There is a single intrauterine gestation in a cephalic presentation. The placenta is anterior and grade 2 maturity. There is no placenta previa. The cervix measures 3.9 cm in length. The cord insertion onto the placenta is located centrally on the placenta. The cord insertion is unremarkable. There is a three-vessel cord. The heart rate is 160 beats per minute. Subjectively the amniotic fluid volume is normal. The composite ultrasound gestational age by the study today is 20 weeks 2 days. The HENNA is 02/02/2021. The LMP is unknown. Estimated weight is 378 gm, 0 lb 13 oz. This is greater than the 97th percentile for 18 weeks 3 days. The following anatomic structures are identified and are unremarkable: Cranium, cavum septum pellucidum, falx, intracranial lateral ventricles, choroid plexus, cerebellum, cisterna magna, facial profile, upper lip, four-chamber heart, cardiac right and left ventricular outflow tracts, diaphragm, stomach, abdominal wall, right and left kidneys, bladder, spine, or left upper extremities, and lower extremities and a three-vessel cord. No anomalies are identified. IMPRESSION: No anomalies are identified. <Electronically signed by Wing Salter > 09/17/20 1301
== END ==
LOC: M WHC 08:19
PROVIDERS: ATTEND Advanced Practice Midwife
DX: Z34.92 Encounter for supervision of normal pregnancy, unspecified, second trimester (principal); Z3A.17 17 weeks gestation of pregnancy

== ENCOUNTER → 2020-12-24 | Outpatient (CLI) | payer MEDICAID, OTHER ==
[~2020-12-24] MED LIST changes: +FAMO1TAB11 PO; +GLYB2.5T7 PO; -GLYB25TA PO; -GLYB5TA PO; +GLYB5TAB6 PO
== END ==
LOC: M WHC 12:58
PROVIDERS: ATTEND Specialist
DX: O24.119 Pre-existing type 2 diabetes mellitus, in pregnancy, unspecified trimester (principal); Z3A.00 Weeks of gestation of pregnancy not specified

== ENCOUNTER 2020-12-25 20:47 | Inpatient (IN) | payer OTHER ==
[~2020-12-25] VITALS: Ht 149.9 cm; Wt 100.9 kg
[~2020-12-25 20:47] MED LIST changes: -FAMO1TAB11 PO
[2020-12-25 21:08] VITALS: BP 116/71
[2020-12-25] MEDS ORDERED: FAMO1TAB11 PO (21:20)
[2020-12-25 21:55] LABS: APPEARANCE, URINE HAZY (CLEAR); BACTERIA, URINE AUTO NEGATIVE (NEGATIVE); BILIRUBIN, URINE AUTO NEGATIVE (NEGATIVE); BLOOD, URINE BLOOD 2+ (NEGATIVE); COLOR, URINE YELLOW (YELLOW); GLUCOSE, URINE (UA) AUTO 3+ mg/dL (NEGATIVE); KETONE, URINE AUTO 1+ mg/dL (NEGATIVE); LEUKOCYTE ESTERASE, URINE AUTO NEGATIVE (NEGATIVE); NITRITE, URINE AUTO NEGATIVE (NEGATIVE); PROTEIN, URINE AUTO 1+ mg/dL (NEGATIVE); RBC, URINE AUTO 2 /HPF (0-3); SPECIFIC GRAVITY URINE AUTO 1.039 (1.002-1.035); SQUAMOUS EPITHELIAL CELL UR AU 9 /HPF (0-6); UROBILINOGEN, URINE AUTO 0.2 mg/dL (0.0-2.0); WBC, URINE AUTO 1 /HPF (0-3)
[2020-12-25 22:05] LABS: HEMATOCRIT 38.7 % (36.0-47.0); HEMOGLOBIN 12.6 g/dl (12.0-15.5); MEAN CORPUSCULAR HEMOGLOBIN 29.1 pg (27.0-33.0); MEAN CORPUSCULAR HGB CONC 32.6 g/dl (32.0-36.5); MEAN CORPUSCULAR VOLUME 89.4 fl (80.0-96.0); PLATELET COUNT, AUTOMATED 308 10^3/uL (150-450); RED BLOOD COUNT 4.33 10^6/uL (4.00-5.40); WHITE BLOOD COUNT 10.7 10^3/uL (4.0-10.0)
[2020-12-25 22:23] LABS: HEMOGLOBIN A1c 7.4 %
[2020-12-25 22:40] VITALS: BP 106/56
[2020-12-25 22:51] LABS: ALBUMIN 2.4 GM/DL (3.2-5.2); ALT/SGPT 20 U/L (12-78); AMYLASE 66 U/L (25-115); BILIRUBIN,TOTAL 0.2 MG/DL (0.2-1.0); BLOOD UREA NITROGEN 5 MG/DL (7-18); CALCIUM LEVEL 8.4 MG/DL (8.5-10.1); CARBON DIOXIDE LEVEL 25 MEQ/L (21-32); CHLORIDE LEVEL 102 MEQ/L (98-107); CREATININE FOR GFR 0.46 MG/DL (0.55-1.30); GLOMERULAR FILTRATION RATE > 60.0 (>60); GLUCOSE, FASTING 315 MG/DL (70-100); LIPASE 713 U/L (73-393); POTASSIUM SERUM 4.6 MEQ/L (3.5-5.1); SODIUM LEVEL 135 MEQ/L (136-145); TOTAL PROTEIN 6.4 GM/DL (6.4-8.2)
--- NOTE | 2020-12-25 23:13 | HPEPDOC ---
Obstetrical History & Physical General Date of Admission December 25, 2020 History of Present Illness 30 yo female at 32 4/7 weeks by 6 week ultrasound (EDC=02/15/2021) presents with one day of diffuse abdominal pain. Her hx is significant for poorly controlled type II diabetes. She does not ever check blood glucose levels. She is non-compliant with any medications. Baby is moving well. No vaginal bleeding. She has a hard time walking because her abdomen is so large. Age: 30 : 7 Term: 1 Pre-term: 1 Abortions: 4 Livin Care Care: Limited Care Dating Final EDC: February 15, 2021 Final EDC by: 1st trimester (US) Antepartum Course Diagnos(e)s Type 2 diabetes mellitus Past Medical History Past Obstetrical History : Past Obstetrical History: Multigravida Past Medical History Medical History OB hx: SAB x 4 02/2017 section 37 1/7 weeks 7#15 oz male, poorly controlled GDM, polyhydramnios 12/2018 section 36 5/7 weeks 8 lb 3 oz male, poorly controlled type II diabetes, polyhydramnios med hx: type II diabetes asthma cigarette smoker surgery: x 2 tympanostomy tube Family History Significant Family History: Diabetes, Hypertension, Lung disease Social History Marital Status: Single Family situation: Spouse/partner home Psychosocial History: No pertinent psych hx * Smoker: current smoker Alcohol: Denies Allergies Coded Allergies: PERFUMES (Verified Allergy, Severe, difficulty breathing, 12/25/20) latex (Verified Allergy, Unknown, rash, burning, 12/25/20) nicotine (Verified Allergy, Unknown, patch causes rash under patch, 12/25/20) ENVIROMENTAL (Verified Adverse Reaction, Intermediate, COUGH/ SNEEZING, 12/25/20) Medications Scheduled Famotidine (Famotidine) 20 Mg Tablet, 1 TAB PO DAILY Scheduled PRN Acetaminophen (Mapap) 500 Mg Tablet, 1,000 MG PO QIDP PRN for PAIN Cyclobenzaprine HCl (Cyclobenzaprine HCl) 10 Mg Tablet, 10 MG PO BID PRN for MUSCLE SPASMS Physical Examination Physical Examination GENERAL: Alert and oriented times three. BREAST: . ABDOMEN: Gravid and non-tender to touch. FETUS: Is vertex (VTX) by sterile vaginal examination (SVE), fetus is vertex (VTX) by Marciano. HEART RATE: Regular rate and rhythm. LUNGS: Clear to auscultation (CTA). EXTREMITIES: No edema. No clonus. Deep tendon reflexes (DTRs) + . Vital Signs/I&O Vital Signs Date Time Temp Pulse Resp B/P (MAP) Pulse Ox O2 Delivery O2 Flow Rate FiO2 12/25/20 21:08 97.6 102 116/71 (86) Laboratory Data 24H [facility]S Laboratory Tests 2 12/25/20 21:45: Urine Color YELLOW, Urine Appearance HAZY, Urine pH 6.0, Urine Specific [place] 1.039, Urine Protein 1+H, Urine Glucose (Auto)(UA) 3+H, Urine Ketones (Auto) 1+H, Urine Blood 2+H, Urine Nitrite NEGATIVE, Urine Bilirubin NEGATIVE, Urine Urobilinogen 0.2, Urine Leukocyte Esterase (Auto) NEGATIVE, Urine WBC (Auto) 1, Urine RBC (Auto) 2, Urine Hyaline Casts (Auto) 0, Urine Bacteria (Auto) NEGATIVE, Urine Squamous Epithelial Cells 9, Urine Sperm (Auto) 12/25/20 21:58: Nucleated Red Blood Cells % (auto) 0.0, Anion Gap 8, Glomerular Filtration Rate > 60.0, Estimated Mean Plasma Glucose 166H, Hemoglobin A1c 7.4, Calcium Level 8.4L, Total Bilirubin 0.2, Aspartate Amino Transf (AST/SGOT) 13, Alanine Aminotransferase (ALT/SGPT) 20, Alkaline Phosphatase 125H, Total Protein 6.4, Albumin 2.4L, Albumin/Globulin Ratio 0.6L, Amylase Level 66, Lipase 713H CBC/BMP Laboratory Tests 12/25/20 21:58 Anatomy Ultrasound Ultrasound Date: Dec 24, 2020 Vaginal Examination Dilation: None Assessment Variability: Moderate Accelerations: Positive Decelerations: None Tocometer Contractions: No Assessment/Plan Assessment Pt is a 30-year-old (G)7 para (P)1-1-4-2 at 32+4 weeks by 6-week ultrasound. Presents to Labor and Delivery with abdominal pain, and poorly controlled diabetes Plan to admit for diabetes management Assess for hyperosmolar state or DKA Consider steroids for lung maturity monitoring in light of polyhydramnios and macrosomia . Plan IRMA MOTA MD Dec 25, 2020 23:13
[2020-12-25 23:31] LABS: OSMOLALITY SERUM 294 MOSM/KG (275-295)
[2020-12-25] MEDS ORDERED: GLUCAGON INJ 1MG VIAL SC PRN (23:50)
[2020-12-25] MEDS ORDERED: DEXTROSE 50% 50 ML SYRINGE IV PRN (23:50)
[2020-12-25] MEDS ORDERED: GLUCOSE 4GM CHEW TABLET PO PRN (23:50)
[2020-12-26] VITALS (9 sets, daily range): BP systolic 89–131; BP diastolic 50–85
[2020-12-26] MEDS ORDERED: FAMOTIDINE 20 MG TAB PO ONE
[2020-12-26] MEDS: PERCOCET 5MG/325MG TAB PO PRN ×5 (00:18→23:56)
[2020-12-26] MEDS: NS 1,000 ML IV SCH ×3 (00:32→19:45)
[2020-12-26] MEDS: HumaLOG INSULIN (NovoLOG) PER UNIT SC SCH ×4 (01:07→18:23)
[2020-12-26] MEDS ORDERED: HumaLOG INSULIN (NovoLOG) PER UNIT SC SCH (07:30)
[2020-12-26 08:03] LABS: ALBUMIN 2.2 GM/DL (3.2-5.2); ALT/SGPT 18 U/L (12-78); BILIRUBIN,TOTAL 0.3 MG/DL (0.2-1.0); BLOOD UREA NITROGEN 4 MG/DL (7-18); CALCIUM LEVEL 8.1 MG/DL (8.5-10.1); CARBON DIOXIDE LEVEL 22 MEQ/L (21-32); CHLORIDE LEVEL 102 MEQ/L (98-107); CREATININE FOR GFR 0.23 MG/DL (0.55-1.30); GLOMERULAR FILTRATION RATE > 60.0 (>60); GLUCOSE, FASTING 201 MG/DL (70-100); LIPASE 470 U/L (73-393); POTASSIUM SERUM 4.2 MEQ/L (3.5-5.1); SODIUM LEVEL 133 MEQ/L (136-145); TOTAL PROTEIN 5.8 GM/DL (6.4-8.2)
--- NOTE | 2020-12-26 08:30 | REP ---
INDICATION: pancreatitis, 32 weeks COMPARISON: None. TECHNIQUE: Real time erickson scale ultrasound examination using curved array transducer. FINDINGS: Liver is enlarged and measures 23 cm in craniocaudal length. There is an 8 mm hyperechoic focus in the left lobe likely small hemangioma. Pancreas is incompletely evaluated due to interposed bowel gas but visualized portions appear normal. The gallbladder is normal and without gallstones, wall thickening, or pericholecystic fluid. No biliary ductal dilatation is appreciated and the common bile duct measures 5.9 mm diameter. Right kidney is normal in reniform shape without hydronephrosis and measures 12.5 x 6.5 x 6.1 cm. No ascites in the visualized right upper quadrant. Intrauterine identified in cephalic presentation (FHR 143 BPM). IMPRESSION: Mild hepatomegaly and suspected small benign subcentimeter hepatic hemangioma. <Electronically signed by Aakash Esteban > 12/26/20 0802
--- NOTE | 2020-12-26 21:01 | IPNPDOC ---
Text Note Date of Service The patient was seen on 12/26/20. NOTE Subjective: Mary Carmen is a 30-year-old female who presented to L&D with severe left upper epigastric pain. She was found to have polyhydramnios and pancreatitis. Her blood sugar at the time of admission was over 300. The hospitalist was consulted. She had IV fluids, was NPO, pain management, and placed on fingersticks every 6 hours with a sliding scale of regular insulin. Sydni jorgensen still reports having some pain especially after eating. She reports active movement. She denies contractions, leaking of fluid or vaginal bleeding. She was able to shower today. Objective: FHR: 130, moderate variability, positive accelerations, no decelerations. [place]: irregular General: Alert and oriented. Does not seem to be in any distress. Respiratory: Regular rate. Lungs wheezing bilaterally in all magdaleno. (Patient is a smoker) Abdomen: gravid-extremely large fundal height VS, US and labs: see below. Assessment: IUP at 32+ weeks gestation, pancreatitis, A2GDM (uncontrolled), not compliant with care, polyhydramnios Plan: Education done with patient and her on diet and appropriate choices given her diabetes and her pancreatitis. Dietary education consult started. Patient reports that she has not kept her regular OB appointments due to transportation. She reports she is willing to do her insulin (which she has done in the past) and come to her appointments weekly if she had appropriate transportation. Social service consult ordered to help set up transportation and appropriate resources. After consulting with Dr. Hillman NPH has been added to her regiment for insulin. She is starting out at 15 NPH at night and 20 NPH in the morning along with a sliding scale every 6 hours. The plan may be to get her betamethasone before discharge due to her uncontrolled diabetes, pancreatitis, and polyhydramnios. Plan to repeat labs in the morning. She was allowed to start of a low carb light diet and ordered chicken nuggets and yi fries with soda. Reported pain at 9/10 and switched back to clear liquids. She has a CPAP and her family member was able to bring it to the department for her to use. VS,Fishbone, I+O VS, Fishbone, I+O Laboratory Tests 12/25/20 21:58 12/26/20 06:57 Item Value Date Time Bedside Glucose (Misc Panel) 197 MG/DL H 12/26/20 0600 Bedside Glucose (Misc Panel) 259 MG/DL H 12/26/20 1215 Bedside Glucose (Misc Panel) 259 MG/DL H 12/26/20 1815 Bedside Glucose (Misc Panel) 210 MG/DL H 12/26/20 2122 Bedside Glucose (Misc Panel) 215 MG/DL H 12/26/20 2354 Bedside Glucose (Misc Panel) 164 MG/DL H 12/27/20 0551 Vital Signs Date Time Temp Pulse Resp B/P (MAP) Pulse Ox O2 Delivery O2 Flow Rate FiO2 12/26/20 19:28 16 12/26/20 07:13 97.6 101 121/58 (79) 96 Room Air EXAMINATION REQUESTED: GALLBLADDER US REASON FOR PATIENT VISIT: ABDOMINAL PAIN REASON FOR EXAM/COMMENT: pancreatitis, 32 weeks INDICATION: pancreatitis, 32 weeks COMPARISON: None. TECHNIQUE: Real time erickson scale ultrasound examination using curved array transducer. FINDINGS: Liver is enlarged and measures 23 cm in craniocaudal length. There is an 8 mm hyperechoic focus in the left lobe likely small hemangioma. Pancreas is incompletely evaluated due to interposed bowel gas but visualized portions appear normal. The gallbladder is normal and without gallstones, wall thickening, or pericholecystic fluid. No biliary ductal dilatation is appreciated and the common bile duct measures 5.9 mm diameter. Right kidney is normal in reniform shape without hydronephrosis and measures 12.5 x 6.5 x 6.1 cm. No ascites in the visualized right upper quadrant. Intrauterine identified in cephalic presentation (FHR 143 BPM). IMPRESSION: Mild hepatomegaly and suspected small benign subcentimeter hepatic hemangioma. <Electronically signed by Aakash Esteban > 12/26/20 0827 ADELAIDA WOODSON CNM Dec 26, 2020 21:01
[2020-12-26] MEDS: HumuLIN N INSULIN (NovoLIN N) PER UNIT SC SCH (21:18)
[2020-12-26] MEDS: FAMOTIDINE 20 MG TAB PO SCH (21:18)
[2020-12-26] MEDS: NYSTATIN 100,000 UNITS/GM TOPICAL PWD 15 GM TOP SCH (21:19)
[2020-12-27] MEDS: HumaLOG INSULIN (NovoLOG) PER UNIT SC SCH ×4 (00:06→18:09)
[2020-12-27 00:10] VITALS: BP 116/59
[2020-12-27] MEDS: NS 1,000 ML IV SCH ×3 (00:33→12:24)
[2020-12-27 03:49] VITALS: BP 102/53
[2020-12-27] MEDS: PERCOCET 5MG/325MG TAB PO PRN ×3 (03:56→16:32)
[2020-12-27] MEDS: HumuLIN N INSULIN (NovoLIN N) PER UNIT SC SCH ×2 (07:44→21:00)
[2020-12-27] MEDS: NYSTATIN 100,000 UNITS/GM TOPICAL PWD 15 GM TOP SCH (08:13)
[2020-12-27 08:23] VITALS: BP 115/61
[2020-12-27 10:20] LABS: HEMATOCRIT 33.8 % (36.0-47.0); HEMOGLOBIN 11.3 g/dl (12.0-15.5); MEAN CORPUSCULAR HEMOGLOBIN 29.7 pg (27.0-33.0); MEAN CORPUSCULAR HGB CONC 33.4 g/dl (32.0-36.5); MEAN CORPUSCULAR VOLUME 88.7 fl (80.0-96.0); PLATELET COUNT, AUTOMATED 255 10^3/uL (150-450); RED BLOOD COUNT 3.81 10^6/uL (4.00-5.40); WHITE BLOOD COUNT 11.5 10^3/uL (4.0-10.0)
[2020-12-27 10:43] LABS: ALT/SGPT 13 U/L (12-78); BILIRUBIN,TOTAL 0.3 MG/DL (0.2-1.0); BLOOD UREA NITROGEN 4 MG/DL (7-18); CALCIUM LEVEL 7.8 MG/DL (8.5-10.1); CARBON DIOXIDE LEVEL 23 MEQ/L (21-32); CHLORIDE LEVEL 106 MEQ/L (98-107); CREATININE FOR GFR 0.25 MG/DL (0.55-1.30); GLOMERULAR FILTRATION RATE > 60.0 (>60); GLUCOSE, FASTING 223 MG/DL (70-100); LIPASE 262 U/L (73-393); POTASSIUM SERUM 3.8 MEQ/L (3.5-5.1); SODIUM LEVEL 135 MEQ/L (136-145); TOTAL PROTEIN 5.2 GM/DL (6.4-8.2)
[2020-12-27 12:38] VITALS: BP 96/52
[2020-12-27] MEDS ORDERED: HumuLIN N INSULIN (NovoLIN N) PER UNIT SC SCH (17:30)
[2020-12-27] MEDS: FAMOTIDINE 20 MG TAB PO SCH (21:00)
[2020-12-27 21:15] VITALS: BP 124/56
[2020-12-28] MEDS: HumaLOG INSULIN (NovoLOG) PER UNIT SC SCH ×3 (00:18→11:19)
[2020-12-28 02:12] VITALS: BP 123/67
[2020-12-28 05:44] VITALS: BP 107/63
[2020-12-28 07:13] LABS: ALBUMIN 1.8 GM/DL (3.2-5.2); ALT/SGPT 11 U/L (12-78); AMYLASE 29 U/L (25-115); BILIRUBIN,TOTAL 0.2 MG/DL (0.2-1.0); BLOOD UREA NITROGEN 2 MG/DL (7-18); CALCIUM LEVEL 7.9 MG/DL (8.5-10.1); CARBON DIOXIDE LEVEL 21 MEQ/L (21-32); CHLORIDE LEVEL 107 MEQ/L (98-107); CREATININE FOR GFR 0.15 MG/DL (0.55-1.30); GLOMERULAR FILTRATION RATE > 60.0 (>60); GLUCOSE, FASTING 99 MG/DL (70-100); LIPASE 135 U/L (73-393); POTASSIUM SERUM 3.6 MEQ/L (3.5-5.1); SODIUM LEVEL 138 MEQ/L (136-145); TOTAL PROTEIN 4.8 GM/DL (6.4-8.2)
[2020-12-28] MEDS: NYSTATIN 100,000 UNITS/GM TOPICAL PWD 15 GM TOP SCH (07:33)
[2020-12-28] MEDS: HumuLIN N INSULIN (NovoLIN N) PER UNIT SC SCH (07:33)
[2020-12-28] MEDS: NS 1,000 ML IV SCH (07:33)
[2020-12-28 08:30] VITALS: BP 116/65
--- NOTE | 2020-12-28 12:38 | DS.PDOC ---
Discharge Summary General Date of Admission Dec 25, 2020 at 23:30 Date of Discharge 12/28/20 Discharge Summary Admitting diagnoses: 1. 32+4 weeks gestation 2. Poorly controlled pre-existing diabetes mellitus (type 2) 3. Hyperosmolar hyperglycemic state vs. DKA 4. Acute pancreatitis 5. Polyhydramnios 6. Obesity 7. Previous section x 2 Discharge diagnoses: Same as above. Glycemic control improved and pancreatitis clinically resolving. Discharge summary: 30-year-old G7, P2, admitted at 32+4 weeks gestation. She presented with acute onset of upper abdominal pain, and was noted to have significant lab abnormalities indicating pancreatitis and hyperosmolar hyperglycemic state versus diabetic ketoacidosis. She was admitted for IV hydration, pain control and glycemic control. status was reassuring throughout the hospital stay. Her glycemic control, significantly improved after administration of insulin. Her insulin regimen included Novolin / NPH and short acting lispro. See below for discharge insulin regimen. Over the course of her hospital stay, her pancreatitis significantly improved in terms of her lab indices and clinical presentation. Her pain completely resolved. She continued to deny uterine contractions, bleeding, or loss of fluid. The baby was noted to be moving frequently. By 12/28/2020, she was meeting discharge criteria and highly desirous of hospital discharge. We discussed her past history of noncompliance with her diabetes management. The risks of continued noncompliance and poor glycemic control were reviewed, to include stillborn in the third trimester. Patient verbalized understanding and assured me she would start taking the insulin as prescribed and to control her diet. Dietary restrictions/modifications were reviewed. She already has scheduled close clinical follow-up, with her next appointment being on 12/30/2020. Routine thir d trimester precautions were reviewed. Discharge medication/insulin regimen: 1. Novolin N. AM/0730: 20 units, PM/1730: 15 units 2. Novolin R. Sliding scale 2 hours postprandial. (101-150: 2 units, 151-200: 4 units, 201-250: 6 units, 251-300: 8 units, >300: 10 units and notify doctor) 3. Daily Vitamin 4. Famotidine 20mg orally, daily. Exam on date of discharge (12/28/20) General: Alert and oriented x 4, no apparent distress HEENT: normal oral/nasal mucosa, no enlargements Heart: RRR no m/g/r Lungs: CTA b/l no w/c/r/r Abd: Uterine fundal height greater than expected (d/t polyhydramnios), no significant uterine fundal tenderness. No guarding or rebound tenderness. Ext: no c/c/e EFM: Reactive, Category I FHR Raymond: irregular ctxs/no labor pattern US: see report. Labs: see [facility] Vital Signs/I&Os Vital Signs Date Time Temp Pulse Resp B/P (MAP) Pulse Ox O2 Delivery O2 Flow Rate FiO2 12/28/20 08:30 97.1 97 18 116/65 (82) 12/27/20 16:32 96 NIPPV (BIPAP/CPAP) I&O- Last 24 Hours up to 6 AM 12/28/20 06:00 Intake Total 2430 ml Output Total 3500 ml Balance -1070 ml Laboratory Data Labs 24H Laboratory Tests 2 12/27/20 12:17: Bedside Glucose (Misc Panel) 192H 12/27/20 16:03: Bedside Glucose (Misc Panel) 132H 12/27/20 18:04: Bedside Glucose (Misc Panel) 167H 12/27/20 23:56: Bedside Glucose (Misc Panel) 105 12/28/20 05:48: Bedside Glucose (Misc Panel) 100 12/28/20 06:27: Anion Gap 10, Glomerular Filtration Rate > 60.0, Calcium Level 7.9L, Total Bilirubin 0.2, Aspartate Amino Transf (AST/SGOT) 12, Alanine Aminotransferase (ALT/SGPT) 11L, Alkaline Phosphatase 95, Total Protein 4.8L, Albumin 1.8L, Albumin/Globulin Ratio 0.6L, Amylase Level 29, Lipase 135 12/28/20 11:17: Bedside Glucose (Misc Panel) 83 CBC/BMP Laboratory Tests 12/28/20 06:27 FSBS Laboratory Tests Test 12/27/20 12:17 12/27/20 16:03 12/27/20 18:04 12/27/20 23:56 Range/Units Bedside Glucose (Misc Panel) 192 132 167 105 70-105 MG/DL Test 12/28/20 05:48 12/28/20 11:17 Range/Units Bedside Glucose (Misc Panel) 100 83 70-105 MG/DL Discharge Medications Scheduled Famotidine (Famotidine) 20 Mg Tablet, 1 TAB PO DAILY, (Reported) Scheduled PRN Acetaminophen (Mapap) 500 Mg Tablet, 1,000 MG PO QIDP PRN for PAIN, (Reported) Cyclobenzaprine HCl (Cyclobenzaprine HCl) 10 Mg Tablet, 10 MG PO BID PRN for MUSCLE SPASMS, (Reported) Allergies Coded Allergies: PERFUMES (Verified Allergy, Severe, difficulty breathing, 12/25/20) latex (Verified Allergy, Unknown, rash, burning, 12/25/20) nicotine (Verified Allergy, Unknown, patch causes rash under patch, 12/25/20) ENVIROMENTAL (Verified Adverse Reaction, Intermediate, COUGH/ SNEEZING, 12/25/20) ANNE LANDRY DO Dec 28, 2020 12:38
== END 2020-12-28 12:52 | disposition home or self-care (01) | DRG 566 ==
LOC: M LDO 20:47 → M LDI 23:30
PROVIDERS: ADMIT Specialist; ATTEND Specialist
DX: O24.313 Unspecified pre-existing diabetes mellitus in pregnancy, third trimester (principal); E11.00 Type 2 diabetes mellitus with hyperosmolarity without nonketotic hyperglycemic-hyperosmolar coma (NKHHC); K85.90 Acute pancreatitis without necrosis or infection, unspecified; E11.65 Type 2 diabetes mellitus with hyperglycemia; O34.211 Maternal care for low transverse scar from previous cesarean delivery; E66.9 Obesity, unspecified; Z3A.32 32 weeks gestation of pregnancy; O99.613 Diseases of the digestive system complicating pregnancy, third trimester; O40.3XX0 Polyhydramnios, third trimester, not applicable or unspecified; O99.213 Obesity complicating pregnancy, third trimester; Z91.14 Patient's other noncompliance with medication regimen; Z79.899 Other long term (current) drug therapy; Z91.040 Latex allergy status

== ENCOUNTER 2021-01-02 13:13 | Outpatient (CLI) | payer MEDICAID, OTHER ==
[~2021-01-02] VITALS: Ht 149.9 cm; Wt 108.9 kg
[~2021-01-02 13:13] MED LIST changes: +FAMO1TAB11 PO
[2021-01-02 13:37] VITALS: BP 99/61
[2021-01-02] MEDS ORDERED: BETAMETHASONE SOLUSPAN 6MG/ML 5ML VIAL (J0702 PER 3MG) IM ONE (13:45)
[2021-01-02 14:14] VITALS: BP 108/59
[2021-01-02] MEDS ORDERED: NOVOINJ12 SC (14:34)
[2021-01-02] MEDS ORDERED: INSUR SC (14:34)
[2021-01-02] MEDS ORDERED: NOVOINJ13 SC (14:34)
[2021-01-02] MEDS ORDERED: PRENTAB9 PO (14:34)
[2021-01-02 14:40] VITALS: BP 115/57
--- NOTE | 2021-01-02 15:21 | IPNPDOC ---
Text Note Date of Service The patient was seen on 01/02/21. NOTE Outpatient 30 yo G [id number] HENNA 02/15/2021. Presents at 33w5d for betamethasone injection. complicated by poorly controlled diabetes Cat I tracing Betamethasone given per consult Dr Valentin Pt discharged home. Instructed to return tomorrow for injection #3. PTL, daily FKC, warnings reviewed. VS,Fishbone, I+O VS, Fishbone, I+O Vital Signs Date Time Temp Pulse Resp B/P (MAP) Pulse Ox O2 Delivery O2 Flow Rate FiO2 01/02/21 14:40 97.8 88 26 115/57 (76) Alise Carmichael CNM Jan 02, 2021 15:21
== END 2021-01-02 15:22 | disposition home or self-care (01) ==
LOC: M LDO 13:13
PROVIDERS: ATTEND Advanced Practice Midwife
DX: O24.419 Gestational diabetes mellitus in pregnancy, unspecified control (principal); Z3A.33 33 weeks gestation of pregnancy
CPT/HCPCS: 59025; 96372; J0702

== ENCOUNTER 2021-01-03 13:07 | Outpatient (CLI) | payer MEDICAID, OTHER ==
[~2021-01-03] VITALS: Ht 149.9 cm; Wt 109.7 kg
[~2021-01-03 13:07] MED LIST changes: +INSUR SC
[2021-01-03 13:23] VITALS: BP 106/59
[2021-01-03 13:29] VITALS: BP 106/59
[2021-01-03] MEDS ORDERED: BETAMETHASONE SOLUSPAN 6MG/ML 5ML VIAL (J0702 PER 3MG) IM ONE (13:30)
[2021-01-03] MEDS ORDERED: KETOROLAC 60MG 2ML VIAL IM ONE (14:05)
[2021-01-03] MEDS ORDERED: KETOROLAC 30 MG/ML 1ML VIAL As Ordered ONE (14:16)
--- NOTE | 2021-01-03 15:31 | IPNPDOC ---
Obstetrical Progress Note Date of Service Jan 03, 2021 Subjective 30 yo female at 33 6/7 weeks gestation presents for 2nd dose of betamethasone. She has poorly controlled type 2 diabetes. She has massive polyhydramnios, as well as macrosomia. She is non-compliant with glucose testing, as well as medications. She has low back pain. Objective Vital Signs Date Time Temp Pulse Resp B/P (MAP) Pulse Ox O2 Delivery O2 Flow Rate FiO2 01/03/21 13:29 97.6 115 22 106/59 (75) Assessment Variability: Moderate Accelerations: Positive Decelerations: None Heart Rate Tracing: Category I Tocometer Contractions: No Assessment and Plan Status: Reassuring Additional Comments fingerstick [id number] 30 yo female at 33 6/7 weeks with type 2 diabetes, poorly controlled. Pt received 2nd dose of BMZ Pt received Toradol 60 mg IM; excellent pain relief from back pain Encouraged compliance with glucose testing and insulin administration Pt signed consent for and TL today Pt will likely need to be delivered earlier than expected due to poor control of diabetes fu office two days as scheduled IRMA MOTA MD Jan 03, 2021 15:31
== END 2021-01-03 15:50 | disposition home or self-care (01) ==
LOC: M LDO 13:07
PROVIDERS: ATTEND Specialist
DX: O24.419 Gestational diabetes mellitus in pregnancy, unspecified control (principal); O40.3XX0 Polyhydramnios, third trimester, not applicable or unspecified; O36.63X0 Maternal care for excessive fetal growth, third trimester, not applicable or unspecified; Z3A.33 33 weeks gestation of pregnancy
CPT/HCPCS: 59025; 96372; J0702; J1885

== ENCOUNTER 2021-01-09 14:51 | Inpatient (IN) | payer MEDICAID, OTHER ==
[~2021-01-09] VITALS: Ht 149.9 cm; Wt 111.8 kg
[2021-01-09 15:16] VITALS: BP 117/59
[2021-01-09] MEDS ORDERED: LR 1,000 ML IV SCH ×3 (15:38→19:00)
[2021-01-09] MEDS ORDERED: MORPHINE PRES-FREE INJ 10 MG/10 ML VIAL (J2274) As Ordered ONE (16:04)
[2021-01-09] MEDS ORDERED: OXYTOCIN INJ 10 UNITS/ML VIAL (J2590) As Ordered ONE (16:06)
[2021-01-09] MEDS ORDERED: LACTATED RINGER'S 1000 ML IV STA (16:19)
--- NOTE | 2021-01-09 16:19 | HPEPDOC ---
Obstetrical History & Physical General Date of Admission Jan 09, 2021 at 15:36 History of Present Illness 30 yo female at 34 5/7 weeks gestation by 6 week ultrasound (EDC+02/15/21) presents to triage with severe right lower abdominal pain. She has a difficult time walking due to the pain. She has difficulty breathing . Her is complicated by poorly controlled type 2 diabetes. She has macrosomia, as well as extreme polyhydramnios. She has had 2 prior sections. Information Provided By: Patient Age: 30 : 7 Term: 2 Pre-term: 0 Abortions: 4 Livin Care Care: Limited Care Dating Final EDC: February 15, 2021 Final EDC by: 1st trimester (US) Antepartum Course Diagnos(e)s Type 2 diabetes, poorly controlled polyhydramnios, macrosomia Past Medical History Past Obstetrical History : Past Obstetrical History: Multigravida Past Medical History Medical History OB hx: 1. 37 1/7 weeks section, gestational diabetes, polyhydramnios 2. 36 5/7 weeks, , type 2 diabetes, polyhydramnios 3. SAB x 4 Medical hx: type 2 diabetes cigarette smoker surgical hx: x 2 Social History Marital Status: Family situation: Spouse/partner home Psychosocial History: No pertinent psych hx * Smoker: current smoker Alcohol: Denies Allergies Coded Allergies: PERFUMES (Verified Allergy, Severe, difficulty breathing, 12/25/20) latex (Verified Allergy, Unknown, rash, burning, 12/25/20) nicotine (Verified Allergy, Unknown, patch causes rash under patch, 12/25/20) ENVIROMENTAL (Verified Adverse Reaction, Intermediate, COUGH/ SNEEZING, 12/25/20) Medications Scheduled Famotidine (Famotidine) 20 Mg Tablet, 1 TAB PO DAILY Insulin Human Regular (Novolin R) 100 Unit/1 Ml Vial, Unknown Dose SC 2HPCHS Insulin NPH Human Isophane (Novolin N) 100 Unit/1 Ml Vial, 15 UNITS SC DAILY Insulin Regular, Human (Novolin R) 100 Unit/1 Ml Vial, 20 UNITS SC DAILY No.137/Iron/Folic Acd ( Vitamin Tablet) 1 Each Tablet, 1 TAB PO DAILY Scheduled PRN Acetaminophen (Mapap) 500 Mg Tablet, 1,000 MG PO QIDP PRN for PAIN Cyclobenzaprine HCl (Cyclobenzaprine HCl) 10 Mg Tablet, 10 MG PO BID PRN for MUSCLE SPASMS Physical Examination Physical Examination GENERAL: Alert and oriented times three. BREAST: . ABDOMEN: Gravid and non-tender to touch. FETUS: Is vertex (VTX) by sterile vaginal examination (SVE), fetus is vertex (VTX) by Marciano. HEART RATE: Regular rate and rhythm. LUNGS: Clear to auscultation (CTA). EXTREMITIES: No edema. No clonus. Deep tendon reflexes (DTRs) + . Vital Signs/I&O Vital Signs Date Time Temp Pulse Resp B/P (MAP) Pulse Ox O2 Delivery O2 Flow Rate FiO2 01/09/21 15:16 97.6 90 117/59 (78) Laboratory Data 24H LABS Laboratory Tests 2 01/09/21 15:23: Bedside Glucose (Misc Panel) 126H Assessment Variability: Moderate Accelerations: Positive Decelerations: None Tocometer Contractions: No Assessment/Plan Assessment Pt is a 30-year-old (G)7 para (P)2041 at 34+5 weeks by 5-week ultrasound. Presents to Labor and Delivery with poorly controlled diabetes, polyhydramnios, macrosomia. There are significant risks to baby and mother by continuing this , including risk of uterine rupture. The patient has trouble breathing and moving due to the massive enlargement of the uterus. Plan Admit and orient. Medical Research Associate and consent Labs and intravenous (IV) per unit protocol. Plan repeat and TL. Pt aware of risks of prematurity. IRMA MOTA MD Jan 09, 2021 16:19
[2021-01-09] MEDS ORDERED: ceFAZolin SOD 2 GM in IV 1 EA IV ONE (16:20)
[2021-01-09] MEDS ORDERED: BICITRA 30ML SOLN UDC PO ONE (16:20)
[2021-01-09 16:31] LABS: HEMATOCRIT 33.4 % (36.0-47.0); HEMOGLOBIN 11.2 g/dl (12.0-15.5); MEAN CORPUSCULAR HEMOGLOBIN 28.8 pg (27.0-33.0); MEAN CORPUSCULAR HGB CONC 33.5 g/dl (32.0-36.5); MEAN CORPUSCULAR VOLUME 85.9 fl (80.0-96.0); PLATELET COUNT, AUTOMATED 353 10^3/uL (150-450); RED BLOOD COUNT 3.89 10^6/uL (4.00-5.40); WHITE BLOOD COUNT 11.1 10^3/uL (4.0-10.0)
[2021-01-09] MEDS ORDERED: NALOXONE INJ 0.4MG/1ML VIAL (J2310 PER 1MG) IV PRN ×2 (17:22)
[2021-01-09] MEDS ORDERED: METOCLOPRAMIDE INJ 10MG/2ML VIAL (J2765 PER 1) IV PRN ×2 (17:22→19:00)
[2021-01-09] MEDS ORDERED: diphenhydrAMINE 50MG/ML VIAL (J1200) IV PRN (17:22)
[2021-01-09] MEDS ORDERED: NALBUPHINE HCL 10 MG/ML AMP (J2300) IV PRN (17:22)
[2021-01-09] MEDS ORDERED: ONDANSETRON 4MG/2ML VIAL IV PRN ×3 (17:22→19:00)
[2021-01-09] MEDS ORDERED: ONDANSETRON 4MG/2ML VIAL As Ordered ONE (17:36)
[2021-01-09] MEDS ORDERED: KETOROLAC 60MG 2ML VIAL As Ordered ONE (17:36)
[2021-01-09] MEDS ORDERED: dexameTHASONE 4 MG/ML 1ML VIAL (J1100 PER 1MG) As Ordered ONE (17:36)
[2021-01-09] MEDS ORDERED: ePHEDrine SULFATE 25 MG/5 ML(5MG/ML) SYRINGE As Ordered ONE (17:39)
[2021-01-09] MEDS ORDERED: PHENYLephrine 500MCG 5ML (100MCG/ML) SYRINGE As Ordered ONE ×2 (17:39→17:43)
[2021-01-09] MEDS ORDERED: METOCLOPRAMIDE INJ 10MG/2ML VIAL (J2765 PER 1) As Ordered ONE (17:59)
[2021-01-09] MEDS ORDERED: KETOROLAC 30 MG/ML 1ML VIAL IV PRN (18:05)
[2021-01-09 18:08] LABS: CORD GAS ABE A -2.7; CORD GAS HCO3 A 26.8 MEQ/L; CORD GAS O2 SAT A 20.8 %; CORD GAS PCO2 A 69.9 mmHg; CORD GAS PH A 7.202 UNITS; CORD GAS PO2 A 11.3 mmHg; CORD GAS SBC A 20.5 MEQ/L
[2021-01-09 18:11] LABS: CORD GAS ABE V -0.5; CORD GAS O2 SAT V 57.7 %; CORD GAS PCO2 V 69.1 mmHg; CORD GAS PH V 7.241 UNITS; CORD GAS PO2 V 23.8 mmHg; CORD GAS TCO2 V 31.1 MEQ/L
[2021-01-09] MEDS ORDERED: DOCUSATE SODIUM 100MG CAPSULE PO PRN (18:25)
[2021-01-09] MEDS ORDERED: SIMETHICONE 80MG CHEW TAB PO PRN (18:25)
[2021-01-09] MEDS ORDERED: RHOGAM 300 MCG (1500 IU) INJ (J2790) IM SCH (18:25)
[2021-01-09] MEDS ORDERED: MEASLES,MUMPS,RUBELLA VACCINE INJ (MMR-II) (90707) SC SCH (18:25)
--- NOTE | 2021-01-09 18:28 | ROOPDOC ---
[facility] Report Of Operation Report of Operation DATE OF PROCEDURE: 01/09/21 Report of operation Preoperative diagnosis: 34 5/7 weeks, type 2 diabetes, severe polyhydramnios, macrosomia Postoperative diagnosis: same Procedure: Repeat low transverse section and bilateral tubal ligation. Surgeon: Irma Mota M.D. Asst.: Josiah Hillman DO EBL: 600 ml. Urine output: 100 mL's. Findings: 8 lbs. 13 oz. male , 's 5 and 8 g normal uterus, fallopian tubes, ovaries. Thin lower uterine segment. Operative summary: Patient states the operating room where spinal anesthesia was induced. She was prepped draped sterile fashion in the supine position. A Zambrano catheter was placed. A Pfannenstiel skin incision was made with scalpel. Fascia was incised and extended bilaterally. The peritoneal cavity was entered. A Mobius retractor was placed. A bladder flap was created. A curvilinear incision was made in lower uterine segment until Clear fluid was noted. The incision was extended manually. The infant was delivered from the breech position without difficulty. Cord was double clamped and cut. The was handed waiting nurses. . The placenta was expressed. Uterus was closed with O-Vicryl in a running locked fashion. A second imbricating layer of Vicryl was placed. Attention was turned to the fallopian tubes. A Hammett clamp was used to grasp the fallopian tubes at the midportion.. A window was created in the broad ligament free tie of 2-0 chromic was placed around the segment of tube on either side of the clamp. A Segment of tube was excised bilaterally and sent to pathology. Peritoneum was closed with 2-0 Vicryl a running fashion. Fascia was closed with 0 Vicryl in running fashion. Skin was closed 4-0 Monocryl subcuticular sutures. Sponge, instrument and needle counts were correct. Josiah Hillman DO, assisted with all aspects of the procedure. He helped each layer of the incision and deliver the fetus. IRMA MOTA MD Jan 09, 2021 18:28
[2021-01-09] MEDS ORDERED: PERCOCET 5MG/325MG TAB PO PRN (19:00)
[2021-01-09] MEDS ORDERED: fentaNYL 100 MCG/2 ML INJECTION (J3010) IV PRN (19:00)
[2021-01-09] MEDS ORDERED: OXYTOCIN 30 UNITS IN 0.9% NaCl 500ML IV BAG (J2590) As Ordered ONE (19:00)
[2021-01-09] MEDS: OXYTOCIN DRIP 30 UNITS in IV 1 EA IV SCH ×2 (19:02→19:20)
[2021-01-09] MEDS ORDERED: PERCOCET 5MG/325MG TAB As Ordered ONE (20:28)
[2021-01-09] MEDS: PERCOCET 5MG/325MG TAB PO PRN (20:33)
[2021-01-09 21:00] VITALS: BP 138/77
[2021-01-09 21:30] VITALS: BP 126/72
[2021-01-09 22:00] VITALS: BP 134/63
[2021-01-09 23:00] VITALS: BP 127/67
[2021-01-09] MEDS: KETOROLAC 30 MG/ML 1ML VIAL IV SCH (23:38)
[2021-01-10] VITALS (7 sets, daily range): BP systolic 119–137; BP diastolic 59–94
[2021-01-10] MEDS: KETOROLAC 30 MG/ML 1ML VIAL IV SCH ×2 (05:24→11:53)
--- NOTE | 2021-01-10 07:16 | IPNPDOC ---
Text Note Date of Service The patient was seen on 01/10/21. NOTE PO #1 Feels well. Adequate pain management. OOB independently.Voiding. Tolerating diet VSS, afebrile, normotensive CBC pending Fundus firm, NT Dressing intact Lochia rubra scant without odor Legs negative. PO #1 Routine care. Declines discharge at this time. VS,Fishbone, I+O VS, Fishbone, I+O Laboratory Tests 01/09/21 16:16 Vital Signs Date Time Temp Pulse Resp B/P (MAP) Pulse Ox O2 Delivery O2 Flow Rate FiO2 01/10/21 05:53 97.1 107 18 132/94 (107) 95 Room Air 01/09/21 19:30 0 I&O- Last 24 Hours up to 6 AM 01/10/21 06:00 Intake Total 2580 ml Output Total 2035 ml Balance 545 ml Alise Carmichael CNM Jan 10, 2021 07:16
[2021-01-10 07:55] LABS: HEMATOCRIT 31.1 % (36.0-47.0); HEMOGLOBIN 10.4 g/dl (12.0-15.5); MEAN CORPUSCULAR HEMOGLOBIN 28.9 pg (27.0-33.0); MEAN CORPUSCULAR HGB CONC 33.4 g/dl (32.0-36.5); MEAN CORPUSCULAR VOLUME 86.4 fl (80.0-96.0); PLATELET COUNT, AUTOMATED 353 10^3/uL (150-450); WHITE BLOOD COUNT 19.9 10^3/uL (4.0-10.0)
[2021-01-10] MEDS: PRENATAL VITAMINS CHEWABLE TABLET PO SCH (09:59)
[2021-01-10] MEDS: PERCOCET 5MG/325MG TAB PO PRN (16:42)
[2021-01-10] MEDS: IBUPROFEN 800 MG TAB PO SCH (19:35)
[2021-01-11] MEDS: PERCOCET 5MG/325MG TAB PO PRN ×2 (01:53→08:05)
[2021-01-11 02:02] VITALS: BP 137/68
[2021-01-11] MEDS: IBUPROFEN 800 MG TAB PO SCH (03:45)
[2021-01-11 06:17] VITALS: BP 140/87
[2021-01-11] MEDS: PRENATAL VITAMINS CHEWABLE TABLET PO SCH (08:05)
--- NOTE | 2021-01-11 09:03 | DS.PDOC ---
Discharge Summary General Date of Admission Jan 09, 2021 at 15:36 Date of Discharge 01/11/2021 Discharge Summary DATE OF ADMISSION: 01/09/21 DATE OF DISCHARGE: 01/11/21 ADMISSION DIAGNOSIS: 1. 34+ weeks EGA. 2. Severe symptomatic polyhydramnios 3. Poorly controlled pregestational IDDM 4. CHTN 5. macrosomia/LGA. 6. History of prior LTCS 7. Satisfied parity 8. Obesity DISCHARGE DIAGNOSIS: same DISCHARGE SUMMARY: The patient was admitted at 34+ weeks gestation with diagnoses listed above. Given the severe nature of her symptoms and concern for well being, the decision was made to proceed with delivery via . The section delivery was uncomplicated. Her postoperative course was uncomplicated as well. On postoperative day #2, she was meeting all discharge criteria. The baby was transferred to NICU at [place], and the patient is very much wanting to be by her baby's bedside. PHYSICAL EXAMINATION ON DATE OF DISCHARGE: Normotensive/intermittent mild HTN. Normal heart rate. Afebrile. HEART: Regular rate and rhythm. No murmurs, gallops, or rubs. LUNGS: Bilateral wheezing (baseline for patient) ABDOMEN: Soft, nontender, nondistended. Incision bandage clean and dry. EXTREMITIES: Nonedematous, nontender. She was meeting all discharge criteria on postoperative day #2. We reviewed routine fever, infectious, pain, and bleeding precautions. She is to followup in 1-2 weeks for incision check/postoperative assessment. Her postoperative medications are Percocet, Motrin, and Colace. As far as her insulin dose, she w as instructed to reduce her unit dose by 50%. Vital Signs/I&Os Vital Signs Date Time Temp Pulse Resp B/P (MAP) Pulse Ox O2 Delivery O2 Flow Rate FiO2 01/11/21 08:05 18 01/11/21 06:17 96.7 94 140/87 (104) 95 Room Air 01/09/21 19:30 0 I&O- Last 24 Hours up to 6 AM 01/11/21 05:59 Output Total 300 ml Balance -300 ml Discharge Medications Scheduled Famotidine (Famotidine) 20 Mg Tablet, 1 TAB PO DAILY, (Reported) Insulin Human Regular (Novolin R) 100 Unit/1 Ml Vial, Unknown Dose SC 2HPCHS, (Reported) Insulin NPH Human Isophane (Novolin N) 100 Unit/1 Ml Vial, 15 UNITS SC DAILY, (Reported) Insulin Regular, Human (Novolin R) 100 Unit/1 Ml Vial, 20 UNITS SC DAILY, (Reported) No.137/Iron/Folic Acd ( Vitamin Tablet) 1 Each Tablet, 1 TAB PO DAILY, (Reported) Scheduled PRN Acetaminophen (Mapap) 500 Mg Tablet, 1,000 MG PO QIDP PRN for PAIN, (Reported) Cyclobenzaprine HCl (Cyclobenzaprine HCl) 10 Mg Tablet, 10 MG PO BID PRN for MUSCLE SPASMS, (Reported) Allergies Coded Allergies: PERFUMES (Verified Allergy, Severe, difficulty breathing, 12/25/20) latex (Verified Allergy, Unknown, rash, burning, 12/25/20) nicotine (Verified Allergy, Unknown, patch causes rash under patch, 12/25/20) ENVIROMENTAL (Verified Adverse Reaction, Intermediate, COUGH/ SNEEZING, 12/25/20) ANNE LANDRY DO Jan 11, 2021 09:03
[2021-01-11] MEDS ORDERED: PERCOCET PO ×2 (09:05→10:22)
[2021-01-11] MEDS ORDERED: IBUP80TA PO ×2 (09:05→10:22)
[2021-01-11] MEDS ORDERED: DOK1CAP7 PO ×2 (09:05→10:22)
== END 2021-01-11 10:17 | disposition home or self-care (01) | DRG 540 ==
LOC: M LDO 14:51 → M LDI 15:36 → M OBS 20:55
PROVIDERS: ADMIT Specialist; ATTEND Specialist
PROC: 0UB70ZZ Excision of Bilateral Fallopian Tubes, Open Approach (ICD-10-PCS; 2021-01-09)
PROC: 10D00Z1 Extraction of Products of Conception, Low, Open Approach (ICD-10-PCS; principal; 2021-01-09 17:21)
DX: O40.3XX0 Polyhydramnios, third trimester, not applicable or unspecified (principal); O60.14X0 Preterm labor third trimester with preterm delivery third trimester, not applicable or unspecified; O24.82 Other pre-existing diabetes mellitus in childbirth; O34.211 Maternal care for low transverse scar from previous cesarean delivery; Z37.0 Single live birth; Z3A.34 34 weeks gestation of pregnancy; Z30.2 Encounter for sterilization; O36.63X0 Maternal care for excessive fetal growth, third trimester, not applicable or unspecified; Z79.4 Long term (current) use of insulin; Z88.8 Allergy status to other drugs, medicaments and biological substances

== ENCOUNTER 2021-09-17 20:03 | Emergency (ER) | payer OTHER, MEDICAID ==
[~2021-09-17] VITALS: Ht 149.9 cm; Wt 84.4 kg
[2021-09-17 20:03] VITALS: BP 129/90
[~2021-09-17 20:03] MED LIST changes: -CEFD1CAP8 PO; +CEFD300C41 PO; +CLOT45CR9 PV; +DOK1CAP4 PO; +OMEP-173 PO; -OMEP-218 PO; -SM C1CRE PV
[2021-09-17 20:46] LABS: BASO # 0.1 10^3/uL (0.0-0.2); BASO % 0.4 % (0.0-1.0); EOS # 0.2 10^3/uL (0.0-0.5); EOS % 1.2 % (0.0-3.0); HEMOGLOBIN 15.1 g/dl (12.0-15.5); LYMPH # 1.9 10^3/uL (1.5-5.0); LYMPH % 13.7 % (24.0-44.0); MEAN CORPUSCULAR HEMOGLOBIN 27.5 pg (27.0-33.0); MEAN CORPUSCULAR HGB CONC 32.8 g/dl (32.0-36.5); MEAN CORPUSCULAR VOLUME 83.8 fl (80.0-96.0); MONO # 0.7 10^3/uL (0.0-0.8); MONO % 5.1 % (2.0-8.0); NEUTROPHILS # 11.1 10^3/uL (1.5-8.5); NEUTROPHILS % 79.2 % (36.0-66.0); PLATELET COUNT, AUTOMATED 464 10^3/uL (150-450); RED BLOOD COUNT 5.49 10^6/uL (4.00-5.40)
[2021-09-17 21:11] LABS: HCG, SERUM QUALITATIVE NEGATIVE (NEGATIVE)
[2021-09-17 21:13] LABS: ALBUMIN 3.9 GM/DL (3.2-5.2); ALT/SGPT 17 U/L (12-78); BILIRUBIN,DIRECT 0.1 MG/DL (0.0-0.2); BILIRUBIN,TOTAL 0.3 MG/DL (0.2-1.0); BLOOD UREA NITROGEN 6 MG/DL (7-18); CALCIUM LEVEL 9.5 MG/DL (8.5-10.1); CARBON DIOXIDE LEVEL 29 MEQ/L (21-32); CHLORIDE LEVEL 104 MEQ/L (98-107); GLOMERULAR FILTRATION RATE > 60.0 (>60); GLUCOSE, FASTING 95 MG/DL (70-100); LIPASE 87 U/L (73-393); POTASSIUM SERUM 4.2 MEQ/L (3.5-5.1); SODIUM LEVEL 139 MEQ/L (136-145); TOTAL PROTEIN 7.6 GM/DL (6.4-8.2)
== END 2021-09-17 21:45 | disposition left against medical advice (07) ==
LOC: M ED 20:03
DX: Z53.21 Procedure and treatment not carried out due to patient leaving prior to being seen by health care provider (principal)

== ENCOUNTER 2022-10-26 21:30 | Emergency (ER) | payer MEDICAID, OTHER ==
[~2022-10-26] VITALS: Ht 149.9 cm; Wt 81.8 kg
[~2022-10-26 21:30] MED LIST changes: +PROG200C22 PO; -PROM200C5 PO
[2022-10-27 01:51] LABS: BASO % 0.3 % (0.0-1.0); EOS % 0.1 % (0.0-3.0); HEMATOCRIT 40.6 % (36.0-47.0); HEMOGLOBIN 13.2 g/dl (12.0-15.5); LYMPH # 1.3 10^3/uL (1.5-5.0); LYMPH % 11.9 % (24.0-44.0); MEAN CORPUSCULAR HEMOGLOBIN 26.9 pg (27.0-33.0); MEAN CORPUSCULAR HGB CONC 32.5 g/dl (32.0-36.5); MEAN CORPUSCULAR VOLUME 82.9 fl (80.0-96.0); MONO # 0.2 10^3/uL (0.0-0.8); MONO % 2.2 % (2.0-8.0); NEUTROPHILS % 85.2 % (36.0-66.0); PLATELET COUNT, AUTOMATED 395 10^3/uL (150-450); WHITE BLOOD COUNT 10.5 10^3/uL (4.0-10.0)
[2022-10-27 02:03] LABS: LIPASE 26 U/L (12-53)
[2022-10-27 02:05] LABS: BILIRUBIN,DIRECT < 0.1 MG/DL (<0.4); HCG, SERUM QUALITATIVE NEGATIVE (NEGATIVE)
[2022-10-27 02:06] LABS: ALBUMIN 3.7 G/DL (3.2-5.2); ALKALINE PHOSPHATASE 70 U/L (46-116); ALT/SGPT 13 U/L (7.0-40); AST/SGOT 13 U/L (<34); BILIRUBIN,TOTAL 0.3 MG/DL (0.3-1.2); BLOOD UREA NITROGEN 7 MG/DL (9-23); CALCIUM LEVEL 9.2 MG/DL (8.5-10.1); CARBON DIOXIDE LEVEL 27 MMOL/L (20-31); CHLORIDE LEVEL 105 MMOL/L (98-107); CREATININE FOR GFR 0.53 MG/DL (0.55-1.30); GLOMERULAR FILTRATION RATE > 60.0 (>60); GLUCOSE, FASTING 114 MG/DL (60-100); SODIUM LEVEL 140 MMOL/L (136-145)
[2022-10-27] MEDS ORDERED: SUCRALFATE 1 GM TAB PO ONE (06:25)
[2022-10-27] MEDS ORDERED: GI COCKTAIL 50ML BTL(HYOSCYAMINE/MAALOX/LIDOCAINE VISCOUS)(1:3:1) PO ONE (06:25)
[2022-10-27] MEDS ORDERED: NS 1,000 ML IV ONE ×2 (06:25→08:20)
[2022-10-27] MEDS ORDERED: OMEPRAZOLE 20MG CAP PO ONE (06:25)
[2022-10-27] MEDS ORDERED: ONDANSETRON 4MG 2ML VIAL IV ONE (06:25)
[2022-10-27] MEDS ORDERED: ONDA4TAB6 PO (08:22)
[2022-10-27] MEDS ORDERED: CARA1TAB6 PO (08:25)
[2022-10-27] MEDS ORDERED: OMEP-173 PO (08:25)
[2022-10-27 08:42] VITALS: BP 139/80
== END 2022-10-27 08:45 | disposition home or self-care (01) ==
LOC: EDBD 21:30 → M ED 21:30
DX: R11.2 Nausea with vomiting, unspecified (principal); R51.9 Headache, unspecified; G40.89 Other seizures; F20.9 Schizophrenia, unspecified; E28.2 Polycystic ovarian syndrome; Z91.040 Latex allergy status; Z91.048 Other nonmedicinal substance allergy status; Z79.4 Long term (current) use of insulin; Z79.810 Long term (current) use of selective estrogen receptor modulators (SERMs); Z79.1 Long term (current) use of non-steroidal anti-inflammatories (NSAID); Z79.899 Other long term (current) drug therapy
CPT/HCPCS: 74021; 80048; 80076; 83690; 84703; 85025; 87428; 96361; 96374; 99284; J2405

== ENCOUNTER 2022-11-20 15:25 | Emergency (ER) | payer OTHER ==
[~2022-11-20] VITALS: Ht 167.6 cm; Wt 82.1 kg
[~2022-11-20 15:25] MED LIST changes: +CARA1TAB6 PO
[2022-11-20] MEDS ORDERED: LORazepam 2 MG/ML 1ML VIAL IV STA ×2 (15:27→15:42)
[2022-11-20] MEDS ORDERED: LORazepam 2 MG/ML 1ML VIAL As Ordered ONE (15:28)
[2022-11-20] MEDS ORDERED: levETIRAcetam INJection 1,000 MG in D5W 100 ML IV ONE (15:30)
[2022-11-20] MEDS ORDERED: NS 1,000 ML IV ONE (15:30)
[2022-11-20] MEDS ORDERED: NALOXONE 2MG/2ML SYRINGE IV STA (15:38)
[2022-11-20 15:50] LABS: ABG BASE EXCESS -1.5 (-2.0-2.0); ABG HCO3 23.3 MEQ/L (22.0-26.0); ABG O2 SATURATION 98.5 % (95.0-99.0); ABG PARTIAL PRESSURE CO2 39.9 mmHg (35.0-45.0); ABG STANDARD HCO3 23.3 MEQ/L (22.0-26.0); ABG TOTAL CO2 24.6 MEQ/L (22.0-29.0); ABG pH (ARTERIAL) 7.385 UNITS (7.350-7.450)
[2022-11-20] MEDS ORDERED: ETOMIDATE INJ 20MG/10ML VIAL IV ONE (15:50)
[2022-11-20] MEDS ORDERED: SUCCINYLCHOLINE INJ 200MG/10ML VIAL IV ONE (15:50)
[2022-11-20] MEDS ORDERED: MIDAZOLAM 100MG/100ML-0.9%NACL 100 MG in IV 1 EA IV SCH (15:50)
[2022-11-20] MEDS ORDERED: SUCCINYLCHOLINE INJ 200MG/10ML VIAL As Ordered ONE (15:52)
[2022-11-20] MEDS ORDERED: ETOMIDATE INJ 20MG/10ML VIAL As Ordered ONE (15:53)
[2022-11-20 15:57] LABS: VENOUS BASE EXCESS -3.8 (-2.0-2.0); VENOUS O2 SATURATION 98.3 % (60.0-80.0); VENOUS PARTIAL PRESSURE CO2 37.7 mmHg (38.0-50.0); VENOUS PARTIAL PRESSURE O2 125.3 mmHg (30.0-50.0); VENOUS PH 7.363 UNITS (7.330-7.430); VENOUS STANDARD HCO3 21.3 MEQ/L; VENOUS TOTAL CO2 22.1 MEQ/L (24.0-28.0)
[2022-11-20 15:58] LABS: BASO # 0.1 10^3/uL (0.0-0.2); BASO % 0.4 % (0.0-1.0); EOS # 0.1 10^3/uL (0.0-0.5); EOS % 0.2 % (0.0-3.0); HEMATOCRIT 46.5 % (36.0-47.0); HEMOGLOBIN 15.4 g/dl (12.0-15.5); LYMPH # 0.7 10^3/uL (1.5-5.0); LYMPH % 3.4 % (24.0-44.0); MEAN CORPUSCULAR HGB CONC 33.1 g/dl (32.0-36.5); MEAN CORPUSCULAR VOLUME 81.6 fl (80.0-96.0); MONO # 0.7 10^3/uL (0.0-0.8); MONO % 3.5 % (2.0-8.0); NEUTROPHILS # 19.3 10^3/uL (1.5-8.5); NEUTROPHILS % 92.2 % (36.0-66.0); PLATELET COUNT, AUTOMATED 449 10^3/uL (150-450)
[2022-11-20] MEDS ORDERED: ROCURONIUM BROMIDE 50MG/5ML VIAL IV ONE (16:10)
[2022-11-20 16:20] LABS: CK-MB VALUE MASS < 1.0 NG/ML (<3.6); ETHYL ALCOHOL (ETHANOL) < 0.003 % (0.000-0.010)
[2022-11-20 16:21] LABS: ACETAMINOPHEN LEVEL < 2.0 UG/ML (10.0-20.0); CPK CREATINE PHOSPHOKINASE 40 U/L (34-145)
[2022-11-20 16:22] LABS: ALBUMIN 4.2 G/DL (3.2-5.2); ALKALINE PHOSPHATASE 87 U/L (46-116); ALT/SGPT 16 U/L (7.0-40); AST/SGOT < 8 U/L (<34); BILIRUBIN,DIRECT 0.2 MG/DL (<0.4); BILIRUBIN,TOTAL 0.5 MG/DL (0.3-1.2); BLOOD UREA NITROGEN 14 MG/DL (9-23); CALCIUM LEVEL 9.3 MG/DL (8.5-10.1); CARBON DIOXIDE LEVEL 24 MMOL/L (20-31); CHLORIDE LEVEL 110 MMOL/L (98-107); CREATININE FOR GFR 0.73 MG/DL (0.55-1.30); GLOMERULAR FILTRATION RATE > 60.0 (>60); GLUCOSE, FASTING 187 MG/DL (60-100); SALICYLATE LEVEL < 3.0 MG/DL (<30); SODIUM LEVEL 142 MMOL/L (136-145); TOTAL PROTEIN 7.5 G/DL (5.7-8.2)
[2022-11-20 16:23] LABS: THYROID STIMULATING HORMONE 1.135 uIU/ML (0.55-4.78)
[2022-11-20 16:30] LABS: OSMOLALITY SERUM 297 MOSM/KG (275-295)
[2022-11-20] MEDS ORDERED: FLUID PLACE HOLDER IV ONE (16:30)
[2022-11-20] MEDS ORDERED: ACYCLOVIR IV ONE ×2 (16:30→18:00)
[2022-11-20] MEDS ORDERED: NS 2,460 ML in IV 1 EA IV ONE (16:35)
[2022-11-20 16:36] LABS: HCG, SERUM QUALITATIVE NEGATIVE (NEGATIVE)
[2022-11-20] MEDS ORDERED: cefTRIAXone SOD 2 GM in D5W MINI-BAG PLUS 50 ML IV ONE (17:00)
[2022-11-20] MEDS ORDERED: ROCURONIUM BROMIDE 50MG/5ML VIAL IV SCH (17:30)
[2022-11-20 17:34] LABS: AMPHETAMINES LEVEL URINE NEGATIVE (NEGATIVE); BARBITURATES URINE NEGATIVE (NEGATIVE); COCAINE METABOLITE URINE NEGATIVE (NEGATIVE); METHADONE URINE NEGATIVE (NEGATIVE); OPIATES URINE NEGATIVE (NEGATIVE); PHENCYCLIDINE URINE NEGATIVE (NEGATIVE)
[2022-11-20 17:36] LABS: ABG BASE EXCESS -3.9 (-2.0-2.0); ABG HCO3 22.2 MEQ/L (22.0-26.0); ABG O2 SATURATION 92.6 % (95.0-99.0); ABG STANDARD HCO3 21.2 MEQ/L (22.0-26.0); ABG TOTAL CO2 23.6 MEQ/L (22.0-29.0); ABG pH (ARTERIAL) 7.321 UNITS (7.350-7.450)
[2022-11-20] MEDS ORDERED: PHENYTOIN IV ONE ×2 (17:40→18:01)
[2022-11-20] MEDS ORDERED: NS IV ONE ×3 (17:40→18:01)
[2022-11-20 17:41] LABS: BENZODIAZEPINES URINE POSITIVE (NEGATIVE); CANNABINOIDS URINE POSITIVE (NEGATIVE)
[2022-11-20] MEDS ORDERED: levETIRAcetam INJection 2,000 MG in D5W 100 ML IV ONE (18:05)
[2022-11-20] MEDS ORDERED: MIDAZOLAM INJ 2MG/2ML VIAL IV ONE (18:10)
[2022-11-20 18:44] LABS: RSV AMPLIFICATION NEGATIVE (NEGATIVE)
[2022-11-20 18:57] LABS: APPEARANCE, CSF CLOTTED (CLEAR); COLOR, CSF RED (COLORLESS)
[2022-11-20 18:58] LABS: CSF TUBE# CELL CNT TUBE 1; CSF TUBE# GLU TUBE 1; CSF TUBE# TP TUBE 1
[2022-11-20 19:18] VITALS: BP 106/57
== END 2022-11-20 19:25 | disposition short-term general hospital (02) ==
LOC: EDBD 15:25 → M ED 15:25
DX: G40.901 Epilepsy, unspecified, not intractable, with status epilepticus (principal); R00.0 Tachycardia, unspecified; E28.2 Polycystic ovarian syndrome; J45.909 Unspecified asthma, uncomplicated; E11.9 Type 2 diabetes mellitus without complications; F17.200 Nicotine dependence, unspecified, uncomplicated; Z91.040 Latex allergy status; Z91.048 Other nonmedicinal substance allergy status; Z79.4 Long term (current) use of insulin; Z79.810 Long term (current) use of selective estrogen receptor modulators (SERMs); Z79.899 Other long term (current) drug therapy
CPT/HCPCS: 31500; 36600; 51702; 70450; 71045; 71250; 74176; 80047; 80048; 80076; 80143; 80307; 82077; 82140; 82550; 82553; 82803; 83605; 83930; 84443; 84702; 84703; 85025; 87040; 87070; 87077; 87186; 87205; 87483; 87631; 89050; 93005; 93041; 94760; 96365; 96366; 96375; 99285; J0133; J0330; J0696; J1165; J1953; J2060; J2250; J2310

== ENCOUNTER 2023-02-26 02:28 | Emergency (ER) | payer OTHER ==
[~2023-02-26] VITALS: Ht 149.9 cm; Wt 86.4 kg
[2023-02-26 02:40] VITALS: BP 135/82
[2023-02-26] MEDS ORDERED: levETIRAcetam INJection 1,000 MG in D5W 100 ML IV ONE (02:50)
[2023-02-26 03:11] LABS: BASO # 0.1 10^3/uL (0.0-0.2); BASO % 0.7 % (0.0-1.0); EOS # 0.4 10^3/uL (0.0-0.5); EOS % 3.5 % (0.0-3.0); HEMATOCRIT 43.5 % (36.0-47.0); HEMOGLOBIN 14.5 g/dl (12.0-15.5); LYMPH # 2.1 10^3/uL (1.5-5.0); MEAN CORPUSCULAR HEMOGLOBIN 27.1 pg (27.0-33.0); MEAN CORPUSCULAR HGB CONC 33.3 g/dl (32.0-36.5); MEAN CORPUSCULAR VOLUME 81.2 fl (80.0-96.0); MONO # 0.7 10^3/uL (0.0-0.8); MONO % 7.3 % (2.0-8.0); NEUTROPHILS # 6.8 10^3/uL (1.5-8.5); NEUTROPHILS % 67.1 % (36.0-66.0); PLATELET COUNT, AUTOMATED 383 10^3/uL (150-450); RED BLOOD COUNT 5.36 10^6/uL (4.00-5.40); WHITE BLOOD COUNT 10.2 10^3/uL (4.0-10.0)
[2023-02-26 03:17] LABS: ABG BASE EXCESS -2.9 (-2.0-2.0); ABG O2 SATURATION 95.6 % (95.0-99.0); ABG PARTIAL PRESSURE CO2 34.6 mmHg (35.0-45.0); ABG TOTAL CO2 22.1 MMOL/L (22.0-29.0); ABG pH (ARTERIAL) 7.402 UNITS (7.350-7.450)
[2023-02-26 03:49] LABS: RSV AMPLIFICATION NEGATIVE (NEGATIVE)
[2023-02-26] MEDS ORDERED: NS 1,000 ML IV ONE (03:55)
[2023-02-26 04:38] LABS: ALBUMIN 3.4 G/DL (3.2-5.2); ALKALINE PHOSPHATASE 68 U/L (46-116); ALT/SGPT 12 U/L (7.0-40); AST/SGOT 9 U/L (<34); BILIRUBIN,DIRECT < 0.1 MG/DL (<0.4); BILIRUBIN,TOTAL 0.2 MG/DL (0.3-1.2); BLOOD UREA NITROGEN 9 MG/DL (9-23); CALCIUM LEVEL 9.2 MG/DL (8.5-10.1); CARBON DIOXIDE LEVEL 25 MMOL/L (20-31); CHLORIDE LEVEL 109 MMOL/L (98-107); CREATININE FOR GFR 0.56 MG/DL (0.55-1.30); GLOMERULAR FILTRATION RATE > 60.0 (>60); GLUCOSE, FASTING 129 MG/DL (60-100); MAGNESIUM LEVEL 1.8 MG/DL (1.8-2.4); POTASSIUM SERUM 3.6 MMOL/L (3.5-5.1); SODIUM LEVEL 142 MMOL/L (136-145); TOTAL PROTEIN 6.3 G/DL (5.7-8.2)
== END 2023-02-26 07:11 | disposition left against medical advice (07) ==
LOC: EDBD 02:28 → M ED 02:28
DX: G40.909 Epilepsy, unspecified, not intractable, without status epilepticus (principal); F17.200 Nicotine dependence, unspecified, uncomplicated; Z91.148 Patient's other noncompliance with medication regimen for other reason; Z91.040 Latex allergy status; Z91.048 Other nonmedicinal substance allergy status; Z79.810 Long term (current) use of selective estrogen receptor modulators (SERMs); Z79.83 Long term (current) use of bisphosphonates; Z79.899 Other long term (current) drug therapy; Z53.9 Procedure and treatment not carried out, unspecified reason
CPT/HCPCS: 36600; 80048; 80076; 82077; 82140; 82330; 82803; 83605; 83735; 84100; 84702; 85025; 87631; 93041; 94760; 96361; 96365; 99284; J1953

== ENCOUNTER 2023-04-16 12:50 | Observation (INO) | payer MEDICAID, OTHER ==
[~2023-04-16] VITALS: Ht 149.9 cm; Wt 83.8 kg
[~2023-04-16 12:50] MED LIST changes: -PROG200C22 PO; +PROG200C32 PO
[2023-04-16] MEDS ORDERED: LACO100T PO (14:12)
[2023-04-16] MEDS ORDERED: SERT150C (14:12)
[2023-04-16 14:22] LABS: RSV AMPLIFICATION NEGATIVE (NEGATIVE)
[2023-04-16 14:41] LABS: BASO # 0.1 10^3/uL (0.0-0.2); BASO % 0.6 % (0.0-1.0); EOS # 0.3 10^3/uL (0.0-0.5); EOS % 2.6 % (0.0-3.0); HEMATOCRIT 44.9 % (36.0-47.0); HEMOGLOBIN 14.7 g/dl (12.0-15.5); LYMPH # 1.9 10^3/uL (1.5-5.0); MEAN CORPUSCULAR HEMOGLOBIN 26.6 pg (27.0-33.0); MEAN CORPUSCULAR HGB CONC 32.7 g/dl (32.0-36.5); MEAN CORPUSCULAR VOLUME 81.2 fl (80.0-96.0); MONO # 0.6 10^3/uL (0.0-0.8); MONO % 5.6 % (2.0-8.0); NEUTROPHILS # 8.1 10^3/uL (1.5-8.5); NEUTROPHILS % 73.8 % (36.0-66.0); PLATELET COUNT, AUTOMATED 375 10^3/uL (150-450); RED BLOOD COUNT 5.53 10^6/uL (4.00-5.40)
[2023-04-16 15:05] LABS: CK-MB VALUE MASS < 1.0 NG/ML (<3.6); ETHYL ALCOHOL (ETHANOL) < 0.003 % (0.000-0.010)
[2023-04-16 15:07] LABS: ALBUMIN 3.8 G/DL (3.2-5.2); ALKALINE PHOSPHATASE 72 U/L (46-116); ALT/SGPT < 9 U/L (7.0-40); AST/SGOT 13 U/L (<34); BILIRUBIN,DIRECT < 0.1 MG/DL (<0.4); BILIRUBIN,TOTAL 0.3 MG/DL (0.3-1.2); BLOOD UREA NITROGEN 9 MG/DL (9-23); CALCIUM LEVEL 9.6 MG/DL (8.5-10.1); CARBON DIOXIDE LEVEL 28 MMOL/L (20-31); CHLORIDE LEVEL 107 MMOL/L (98-107); CREATININE FOR GFR 0.51 MG/DL (0.55-1.30); GLOMERULAR FILTRATION RATE > 60.0 (>60); GLUCOSE, FASTING 76 MG/DL (60-100); SODIUM LEVEL 139 MMOL/L (136-145); TOTAL PROTEIN 6.6 G/DL (5.7-8.2)
[2023-04-16 15:08] LABS: THYROID STIMULATING HORMONE 0.828 uIU/ML (0.55-4.78)
[2023-04-16 15:10] LABS: CPK CREATINE PHOSPHOKINASE 75 U/L (34-145); MB/CK RELATIVE INDEX 1.33 (< OR =4)
[2023-04-16] MEDS ORDERED: VALPROATE SOD INJ 1,000 MG in D5W 50 ML IV ONE (16:00)
[2023-04-16] MEDS ORDERED: MED REC IN PROGRESS XX SCH (16:45)
[2023-04-16] MEDS ORDERED: BACT800T5 PO (16:58)
[2023-04-16] MEDS ORDERED: ALEV220T22 PO (17:12)
[2023-04-16] MEDS ORDERED: ZOLO100T PO (17:12)
[2023-04-16] MEDS ORDERED: HOME MED LIST COMPLETE! XX SCH (17:15)
[2023-04-16] MEDS ORDERED: PILL CUTTER 1 EACH XX PRN (17:30)
[2023-04-16 17:40] LABS: AMPHETAMINES LEVEL URINE NEGATIVE (NEGATIVE)
[2023-04-16 17:41] LABS: BARBITURATES URINE NEGATIVE (NEGATIVE); BENZODIAZEPINES URINE NEGATIVE (NEGATIVE); COCAINE METABOLITE URINE NEGATIVE (NEGATIVE); METHADONE URINE NEGATIVE (NEGATIVE); OPIATES URINE NEGATIVE (NEGATIVE); PHENCYCLIDINE URINE NEGATIVE (NEGATIVE)
[2023-04-16 17:46] LABS: CANNABINOIDS URINE POSITIVE (NEGATIVE)
[2023-04-16 20:20] VITALS: BP 123/63; TEMP 98.1; O2SAT 99
[2023-04-16] MEDS: DIVALPROEX 500MG *ER* TAB PO SCH (20:32)
[2023-04-16] MEDS: LACOSAMIDE 50 MG TAB (VIMPAT) PO SCH (20:32)
[2023-04-16] MEDS: ALBUTEROL SULFATE 2.5MG/0.5ML INH NEB SOLN NEB SCH (20:35)
[2023-04-16] MEDS ORDERED: ACETAMINOPHEN TAB 650MG DOSE (2X325MG) PO PRN (21:55)
[2023-04-16] MEDS: KETOROLAC 30 MG/ML 1ML VIAL IV PRN (22:27)
[2023-04-16] MEDS ORDERED: SODIUM CHLORIDE 0.9% INJ 10 ML SYR IV PRN (22:45)
[2023-04-17] MEDS: ALBUTEROL SULFATE 2.5MG/0.5ML INH NEB SOLN NEB SCH ×2 (01:26→08:22)
[2023-04-17 05:42] VITALS: BP 143/98; TEMP 97.7; O2SAT 98
[2023-04-17] MEDS: KETOROLAC 30 MG/ML 1ML VIAL IV PRN (05:44)
[2023-04-17] MEDS ORDERED: SODIUM CHLORIDE 0.9% INJ 10 ML SYR IV SCH (06:00)
[2023-04-17 06:45] LABS: HEMATOCRIT 42.9 % (36.0-47.0); HEMOGLOBIN 13.8 g/dl (12.0-15.5); MEAN CORPUSCULAR HEMOGLOBIN 26.2 pg (27.0-33.0); MEAN CORPUSCULAR HGB CONC 32.2 g/dl (32.0-36.5); MEAN CORPUSCULAR VOLUME 81.4 fl (80.0-96.0); PLATELET COUNT, AUTOMATED 352 10^3/uL (150-450); RED BLOOD COUNT 5.27 10^6/uL (4.00-5.40); WHITE BLOOD COUNT 9.2 10^3/uL (4.0-10.0)
[2023-04-17 07:08] LABS: BLOOD UREA NITROGEN 11 MG/DL (9-23); CALCIUM LEVEL 8.8 MG/DL (8.5-10.1); CARBON DIOXIDE LEVEL 25 MMOL/L (20-31); CHLORIDE LEVEL 106 MMOL/L (98-107); CREATININE FOR GFR 0.54 MG/DL (0.55-1.30); GLOMERULAR FILTRATION RATE > 60.0 (>60); GLUCOSE, FASTING 86 MG/DL (60-100); POTASSIUM SERUM 4.3 MMOL/L (3.5-5.1); SODIUM LEVEL 139 MMOL/L (136-145)
[2023-04-17] MEDS: DIVALPROEX 500MG *ER* TAB PO SCH (08:35)
[2023-04-17] MEDS: LACOSAMIDE 50 MG TAB (VIMPAT) PO SCH (08:35)
[2023-04-17] MEDS ORDERED: ENOXAPARIN 40MG/0.4ML SYRINGE (J1650 PER 10MG) SC SCH (09:00)
[2023-04-17] MEDS ORDERED: SERTRALINE 100 MG TAB PO SCH (09:00)
[2023-04-17] MEDS ORDERED: DEPA500T2 PO (10:53)
== END 2023-04-17 14:44 | disposition home or self-care (01) ==
LOC: M ED 12:50 → EDBD 12:50 → M ED INP 16:49 → M MSPAV 20:18
PROVIDERS: ADMIT Internal Medicine; ATTEND Internal Medicine
DX: R55 Syncope and collapse (principal); G40.509 Epileptic seizures related to external causes, not intractable, without status epilepticus; Z91.148 Patient's other noncompliance with medication regimen for other reason; D72.829 Elevated white blood cell count, unspecified; R07.9 Chest pain, unspecified; F39 Unspecified mood [affective] disorder; E28.2 Polycystic ovarian syndrome; J45.20 Mild intermittent asthma, uncomplicated; R35.0 Frequency of micturition; Z79.899 Other long term (current) drug therapy; J30.2 Other seasonal allergic rhinitis; Z91.040 Latex allergy status
CPT/HCPCS: 36415; 70450; 71045; 80048; 80076; 80180; 80307; 81001; 82077; 82140; 82550; 82553; 84443; 85025; 85027; 87631; 93005; 93041; 94640; 94760; 96365; 96372; 96375; 96376; 99285; J1650; J1885

== ENCOUNTER 2023-09-22 14:42 | Emergency (ER) | payer MEDICAID, OTHER ==
[~2023-09-22] VITALS: Ht 149.9 cm; Wt 88.1 kg
[~2023-09-22 14:42] MED LIST changes: +ALBU8.5H; +ALEV220T22 PO; +BACT800T5 PO; +CEFD1CAP9 PO; -CEFD300C41 PO; +DEPA500T2 PO; +LACO100T PO; +SERT150C; +ZOLO100T PO
[2023-09-22 17:12] VITALS: BP 111/64; TEMP 97.8; O2SAT 97
== END 2023-09-22 17:20 | disposition home or self-care (01) ==
LOC: M ED 14:42
DX: J06.9 Acute upper respiratory infection, unspecified (principal); E28.2 Polycystic ovarian syndrome; G40.909 Epilepsy, unspecified, not intractable, without status epilepticus; F17.200 Nicotine dependence, unspecified, uncomplicated; Z91.040 Latex allergy status; Z91.048 Other nonmedicinal substance allergy status; Z79.52 Long term (current) use of systemic steroids; Z79.899 Other long term (current) drug therapy

== ENCOUNTER 2023-10-12 09:56 | Emergency (ER) | payer MEDICAID, OTHER ==
[~2023-10-12] VITALS: Ht 149.9 cm; Wt 84.6 kg
[~2023-10-12 09:56] MED LIST changes: +ACET325C5 PO
[2023-10-12 10:44] LABS: BLOOD UREA NITROGEN 6 MG/DL (9-23); CALCIUM LEVEL 8.8 MG/DL (8.5-10.1); CARBON DIOXIDE LEVEL 31 MMOL/L (20-31); CHLORIDE LEVEL 107 MMOL/L (98-107); CREATININE FOR GFR 0.52 MG/DL (0.55-1.30); GLOMERULAR FILTRATION RATE > 60.0 (>60); GLUCOSE, FASTING 105 MG/DL (60-100); POTASSIUM SERUM 4.2 MMOL/L (3.5-5.1); SODIUM LEVEL 142 MMOL/L (136-145)
[2023-10-12 10:45] LABS: BASO % 0.4 % (0.0-1.0); EOS # 0.2 10^3/uL (0.0-0.5); EOS % 3.5 % (0.0-3.0); HEMATOCRIT 43.1 % (36.0-47.0); HEMOGLOBIN 14.2 g/dl (12.0-15.5); LYMPH # 1.7 10^3/uL (1.5-5.0); LYMPH % 32.9 % (24.0-44.0); MEAN CORPUSCULAR HEMOGLOBIN 28.1 pg (27.0-33.0); MEAN CORPUSCULAR HGB CONC 32.9 g/dl (32.0-36.5); MEAN CORPUSCULAR VOLUME 85.2 fl (80.0-96.0); MONO # 0.7 10^3/uL (0.0-0.8); MONO % 13.1 % (2.0-8.0); NEUTROPHILS # 2.6 10^3/uL (1.5-8.5); NEUTROPHILS % 49.9 % (36.0-66.0); PLATELET COUNT, AUTOMATED 306 10^3/uL (150-450); RED BLOOD COUNT 5.06 10^6/uL (4.00-5.40); WHITE BLOOD COUNT 5.1 10^3/uL (4.0-10.0)
[2023-10-12 10:48] LABS: THYROID STIMULATING HORMONE 0.865 uIU/ML (0.55-4.78)
[2023-10-12 12:05] VITALS: BP 138/86; TEMP 98.4; O2SAT 95
== END 2023-10-12 12:10 | disposition home or self-care (01) ==
LOC: M ED 09:56
DX: G40.89 Other seizures (principal); F17.210 Nicotine dependence, cigarettes, uncomplicated; Z79.899 Other long term (current) drug therapy; Z79.1 Long term (current) use of non-steroidal anti-inflammatories (NSAID); Z88.8 Allergy status to other drugs, medicaments and biological substances; Z91.040 Latex allergy status

== ENCOUNTER → 2023-10-13 | Outpatient (REF) | payer OTHER, MEDICAID | LOC: M SFHCPLAZ 15:24 | PROVIDERS: ATTEND Student in an Organized Health Care Education/Training Program | DX: R09.89 Other specified symptoms and signs involving the circulatory and respiratory systems (principal) ==

== ENCOUNTER → 2023-10-13 | Outpatient (CLI) | payer MEDICAID, OTHER | LOC: M PLAIMG 15:36 | PROVIDERS: ATTEND Student in an Organized Health Care Education/Training Program | DX: R06.2 Wheezing (principal) ==

== ENCOUNTER 2023-11-03 08:43 | Emergency (ER) | payer OTHER ==
[~2023-11-03] VITALS: Ht 149.9 cm; Wt 90.0 kg
[2023-11-03] MEDS ORDERED: ALBU8.5H (08:57)
[2023-11-03 09:45] VITALS: BP 116/68; TEMP 97.8; O2SAT 96
== END 2023-11-03 10:08 | disposition home or self-care (01) ==
LOC: M ED 08:43 → EDBD 08:43 → M ED 10:08
DX: F44.5 Conversion disorder with seizures or convulsions (principal); E28.2 Polycystic ovarian syndrome; F17.200 Nicotine dependence, unspecified, uncomplicated; Z91.040 Latex allergy status; Z91.048 Other nonmedicinal substance allergy status; Z79.52 Long term (current) use of systemic steroids; Z79.1 Long term (current) use of non-steroidal anti-inflammatories (NSAID)

== ENCOUNTER 2024-04-28 13:46 | Emergency (ER) | payer OTHER ==
[~2024-04-28] VITALS: Ht 149.9 cm; Wt 85.0 kg
[~2024-04-28 13:46] MED LIST changes: +ONDA-282 PO; -ONDA4TAB6 PO
[2024-04-28 15:20] LABS: AMPHETAMINES LEVEL URINE NEGATIVE (NEGATIVE); BARBITURATES URINE NEGATIVE (NEGATIVE); BENZODIAZEPINES URINE NEGATIVE (NEGATIVE); COCAINE METABOLITE URINE NEGATIVE (NEGATIVE); METHADONE URINE NEGATIVE (NEGATIVE); OPIATES URINE NEGATIVE (NEGATIVE); PHENCYCLIDINE URINE NEGATIVE (NEGATIVE)
[2024-04-28 15:24] LABS: BLOOD UREA NITROGEN < 5 MG/DL (9-23); CALCIUM LEVEL 9.1 MG/DL (8.5-10.1); CANNABINOIDS URINE POSITIVE (NEGATIVE); CARBON DIOXIDE LEVEL 26 MMOL/L (20-31); CHLORIDE LEVEL 110 MMOL/L (98-107); CREATININE FOR GFR 0.53 MG/DL (0.55-1.30); GLOMERULAR FILTRATION RATE > 60.0 (>60); GLUCOSE, FASTING 72 MG/DL (60-100); POTASSIUM SERUM 3.8 MMOL/L (3.5-5.1); SODIUM LEVEL 142 MMOL/L (136-145)
[2024-04-28 16:00] VITALS: TEMP 98.2
[2024-04-28 16:04] LABS: HCG, SERUM QUALITATIVE NEGATIVE (NEGATIVE)
[2024-04-28 16:15] VITALS: BP 115/59; O2SAT 96
== END 2024-04-28 16:31 | disposition home or self-care (01) ==
LOC: M ED 13:46 → EDBD 13:46 → M ED 16:31
DX: R56.9 Unspecified convulsions (principal); R00.1 Bradycardia, unspecified; F32.A Depression, unspecified; E28.2 Polycystic ovarian syndrome; F17.200 Nicotine dependence, unspecified, uncomplicated; Z91.040 Latex allergy status; Z91.048 Other nonmedicinal substance allergy status; Z79.52 Long term (current) use of systemic steroids; Z79.899 Other long term (current) drug therapy

== ENCOUNTER 2024-06-05 16:37 | Emergency (ER) | payer OTHER ==
[~2024-06-05] VITALS: Ht 149.9 cm; Wt 85.8 kg
[2024-06-05 18:25] LABS: BASO # 0.1 10^3/uL (0.0-0.2); BASO % 0.6 % (0.0-1.0); EOS # 0.3 10^3/uL (0.0-0.5); EOS % 3.2 % (0.0-3.0); HEMATOCRIT 40.6 % (36.0-47.0); HEMOGLOBIN 13.9 g/dl (12.0-15.5); LYMPH # 2.5 10^3/uL (1.5-5.0); LYMPH % 28.3 % (24.0-44.0); MEAN CORPUSCULAR HEMOGLOBIN 28.7 pg (27.0-33.0); MEAN CORPUSCULAR HGB CONC 34.2 g/dl (32.0-36.5); MEAN CORPUSCULAR VOLUME 83.7 fl (80.0-96.0); MONO # 0.7 10^3/uL (0.0-0.8); MONO % 7.5 % (2.0-8.0); NEUTROPHILS # 5.3 10^3/uL (1.5-8.5); NEUTROPHILS % 59.9 % (36.0-66.0); PLATELET COUNT, AUTOMATED 370 10^3/uL (150-450); RED BLOOD COUNT 4.85 10^6/uL (4.00-5.40); WHITE BLOOD COUNT 8.8 10^3/uL (4.0-10.0)
[2024-06-05 18:46] VITALS: O2SAT 96
[2024-06-05 18:49] LABS: BLOOD UREA NITROGEN 9 MG/DL (9-23); CALCIUM LEVEL 9.3 MG/DL (8.5-10.1); CARBON DIOXIDE LEVEL 28 MMOL/L (20-31); CHLORIDE LEVEL 109 MMOL/L (98-107); CREATININE FOR GFR 0.64 MG/DL (0.55-1.30); GLOMERULAR FILTRATION RATE > 60.0 (>60); GLUCOSE, FASTING 79 MG/DL (60-100); POTASSIUM SERUM 4.5 MMOL/L (3.5-5.1); SODIUM LEVEL 139 MMOL/L (136-145)
[2024-06-05 19:43] VITALS: BP 127/69; TEMP 96.7
[2024-06-05] MEDS: KETOROLAC 30 MG/ML 1ML VIAL IV ONE (19:53)
[2024-06-05] MEDS: NS 1,000 ML IV ONE (19:56)
[2024-06-05 20:13] LABS: PROLACTIN 7.08 NG/ML
[2024-06-05 20:14] LABS: HCG, SERUM QUALITATIVE NEGATIVE (NEGATIVE)
[2024-06-05 20:36] LABS: CPK CREATINE PHOSPHOKINASE 69 U/L (34-145)
== END 2024-06-05 22:10 | disposition home or self-care (01) ==
LOC: EDBD 16:37 → M ED 16:37
DX: F44.5 Conversion disorder with seizures or convulsions (principal); R51.9 Headache, unspecified; F32.A Depression, unspecified; E28.2 Polycystic ovarian syndrome; J45.909 Unspecified asthma, uncomplicated; Z91.040 Latex allergy status; Z91.048 Other nonmedicinal substance allergy status; Z79.52 Long term (current) use of systemic steroids; Z79.1 Long term (current) use of non-steroidal anti-inflammatories (NSAID); Z79.899 Other long term (current) drug therapy
CPT/HCPCS: 70450; 80048; 82550; 83605; 84146; 84703; 85025; 96374; 99291; J1885

== ENCOUNTER 2024-06-14 13:45 | Emergency (ER) | payer OTHER ==
[~2024-06-14] VITALS: Ht 149.9 cm; Wt 89.5 kg
[2024-06-14] MEDS ORDERED: ISOVUE-370 76% 100ML VIAL As Ordered ONE (15:53)
[2024-06-14 15:59] LABS: BASO % 0.3 % (0.0-1.0); EOS % 0.1 % (0.0-3.0); HEMATOCRIT 45.3 % (36.0-47.0); HEMOGLOBIN 15.1 g/dl (12.0-15.5); LYMPH # 1.5 10^3/uL (1.5-5.0); LYMPH % 12.2 % (24.0-44.0); MEAN CORPUSCULAR HEMOGLOBIN 27.9 pg (27.0-33.0); MEAN CORPUSCULAR HGB CONC 33.3 g/dl (32.0-36.5); MEAN CORPUSCULAR VOLUME 83.7 fl (80.0-96.0); MONO # 0.3 10^3/uL (0.0-0.8); MONO % 2.5 % (2.0-8.0); NEUTROPHILS # 10.4 10^3/uL (1.5-8.5); NEUTROPHILS % 84.5 % (36.0-66.0); PLATELET COUNT, AUTOMATED 364 10^3/uL (150-450); RED BLOOD COUNT 5.41 10^6/uL (4.00-5.40); WHITE BLOOD COUNT 12.3 10^3/uL (4.0-10.0)
[2024-06-14] MEDS: ONDANSETRON 4MG 2ML VIAL IV ONE (16:04)
[2024-06-14] MEDS: KETOROLAC 30 MG/ML 1ML VIAL IV ONE (16:04)
[2024-06-14] MEDS: NS 1,000 ML IV ONE (16:04)
[2024-06-14 16:29] LABS: ALBUMIN 4.2 G/DL (3.2-5.2); ALKALINE PHOSPHATASE 72 U/L (46-116); ALT/SGPT 23 U/L (7.0-40); AST/SGOT 31 U/L (<34); BILIRUBIN,DIRECT < 0.1 MG/DL (<0.4); BILIRUBIN,TOTAL 0.4 MG/DL (0.3-1.2); LIPASE 30 U/L (12-53); TOTAL PROTEIN 7.6 G/DL (5.7-8.2)
[2024-06-14] MEDS: PANTOPRAZOLE 40MG VIAL IV ONE (18:01)
[2024-06-14] MEDS: DICYCLOMINE 10 MG CAP PO ONE (18:01)
[2024-06-14] MEDS ORDERED: PROT1TAB2 PO (18:17)
[2024-06-14] MEDS ORDERED: CARA1TAB6 PO (18:17)
[2024-06-14] MEDS ORDERED: MIRA3350 PO (18:17)
[2024-06-14] MEDS ORDERED: ONDA-282 PO (18:17)
[2024-06-14 18:32] VITALS: BP 125/74; TEMP 97.9; O2SAT 100
== END 2024-06-14 18:37 | disposition home or self-care (01) ==
LOC: M ED 13:45
DX: R10.13 Epigastric pain (principal); K59.00 Constipation, unspecified; N83.202 Unspecified ovarian cyst, left side; K44.9 Diaphragmatic hernia without obstruction or gangrene; K21.9 Gastro-esophageal reflux disease without esophagitis; F41.9 Anxiety disorder, unspecified; F32.A Depression, unspecified; F17.200 Nicotine dependence, unspecified, uncomplicated; F12.10 Cannabis abuse, uncomplicated; Z91.040 Latex allergy status; Z88.8 Allergy status to other drugs, medicaments and biological substances; Z91.048 Other nonmedicinal substance allergy status; Z79.52 Long term (current) use of systemic steroids; Z79.899 Other long term (current) drug therapy; Z79.1 Long term (current) use of non-steroidal anti-inflammatories (NSAID)
CPT/HCPCS: 74177; 80047; 80076; 81001; 83690; 85025; 93041; 96361; 96374; 96375; 99284; J1885; J2405; J2470; Q9967

== ENCOUNTER 2024-07-19 17:07 | Emergency (ER) | payer MEDICAID, OTHER ==
[~2024-07-19] VITALS: Ht 149.9 cm; Wt 86.4 kg
[~2024-07-19 17:07] MED LIST changes: +MIRA3350 PO; +PROT1TAB2 PO
[2024-07-19 17:52] LABS: BASO # 0.1 10^3/uL (0.0-0.2); BASO % 0.6 % (0.0-1.0); EOS # 0.4 10^3/uL (0.0-0.5); EOS % 2.7 % (0.0-3.0); HEMATOCRIT 47.9 % (36.0-47.0); LYMPH # 3.3 10^3/uL (1.5-5.0); LYMPH % 24.3 % (24.0-44.0); MEAN CORPUSCULAR HEMOGLOBIN 28.4 pg (27.0-33.0); MEAN CORPUSCULAR HGB CONC 33.4 g/dl (32.0-36.5); MEAN CORPUSCULAR VOLUME 85.1 fl (80.0-96.0); MONO # 0.9 10^3/uL (0.0-0.8); MONO % 6.3 % (2.0-8.0); NEUTROPHILS # 9.1 10^3/uL (1.5-8.5); NEUTROPHILS % 65.7 % (36.0-66.0); PLATELET COUNT, AUTOMATED 389 10^3/uL (150-450); RED BLOOD COUNT 5.63 10^6/uL (4.00-5.40); WHITE BLOOD COUNT 13.8 10^3/uL (4.0-10.0)
[2024-07-19 18:22] VITALS: BP 105/65; TEMP 96.7; O2SAT 99
[2024-07-19 18:22] LABS: ETHYL ALCOHOL (ETHANOL) < 0.003 % (0.000-0.010)
[2024-07-19 18:32] LABS: BLOOD UREA NITROGEN 10 MG/DL (9-23); CALCIUM LEVEL 9.7 MG/DL (8.5-10.1); CARBON DIOXIDE LEVEL 25 MMOL/L (20-31); CHLORIDE LEVEL 106 MMOL/L (98-107); CREATININE FOR GFR 0.46 MG/DL (0.55-1.30); GLOMERULAR FILTRATION RATE > 60.0 (>60); GLUCOSE, FASTING 80 MG/DL (60-100); POTASSIUM SERUM 4.7 MMOL/L (3.5-5.1); SODIUM LEVEL 135 MMOL/L (136-145)
[2024-07-19 18:40] LABS: HCG, SERUM QUALITATIVE NEGATIVE (NEGATIVE)
== END 2024-07-19 18:53 | disposition home or self-care (01) ==
LOC: EDBD 17:07 → M ED 17:07
DX: F44.5 Conversion disorder with seizures or convulsions (principal); F41.9 Anxiety disorder, unspecified; F17.200 Nicotine dependence, unspecified, uncomplicated; F12.10 Cannabis abuse, uncomplicated; Z91.040 Latex allergy status; Z91.048 Other nonmedicinal substance allergy status; Z79.83 Long term (current) use of bisphosphonates; Z79.52 Long term (current) use of systemic steroids; Z79.899 Other long term (current) drug therapy

== ENCOUNTER → 2024-08-03 | Outpatient (REF) | payer MEDICAID, OTHER | LOC: M SFHCPLAZ 15:06 | DX: Z53.9 Procedure and treatment not carried out, unspecified reason (principal) ==

== ENCOUNTER → 2024-11-23 | Outpatient (REF) | payer OTHER, MEDICAID ==
[2024-11-23 15:27] LABS: HEMATOCRIT 41.5 % (36.0-47.0); HEMOGLOBIN 13.6 g/dl (12.0-15.5); MEAN CORPUSCULAR HEMOGLOBIN 28.5 pg (27.0-33.0); MEAN CORPUSCULAR HGB CONC 32.8 g/dl (32.0-36.5); MEAN CORPUSCULAR VOLUME 86.8 fl (80.0-96.0); PLATELET COUNT, AUTOMATED 404 10^3/uL (150-450); RED BLOOD COUNT 4.78 10^6/uL (4.00-5.40); WHITE BLOOD COUNT 10.2 10^3/uL (4.0-10.0)
[2024-11-23 15:29] LABS: ALBUMIN 3.4 G/DL (3.2-5.2); ALKALINE PHOSPHATASE 80 U/L (35-104); ALT/SGPT 29 U/L (7.0-40); AST/SGOT 10 U/L (<34); BILIRUBIN,TOTAL 0.2 MG/DL (0.3-1.2); BLOOD UREA NITROGEN 13 MG/DL (9-23); CARBON DIOXIDE LEVEL 28 MMOL/L (20-31); CHLORIDE LEVEL 106 MMOL/L (98-107); CHOLESTEROL LEVEL 168 MG/DL (<200); CHOLESTEROL RISK RATIO 3.68 (<5); CREATININE FOR GFR 0.58 MG/DL (0.55-1.30); GLOMERULAR FILTRATION RATE > 60.0 (>60); GLUCOSE, FASTING 100 MG/DL (60-100); HDL CHOLESTEROL 45.6 MG/DL (>40); NON-HDL-C 122.4 MG/DL; POTASSIUM SERUM 4.4 MMOL/L (3.5-5.1); SODIUM LEVEL 142 MMOL/L (136-145); TOTAL PROTEIN 6.7 G/DL (5.7-8.2); TRIGLYCERIDES LEVEL 157 MG/DL (<150)
[2024-11-23 15:32] LABS: THYROID STIMULATING HORMONE 1.721 uIU/ML (0.55-4.78)
[2024-11-23 16:35] LABS: HEMOGLOBIN A1c 5.4 % (4.0-6.0)
== END ==
LOC: M LAB REF 13:14
PROVIDERS: ATTEND Student in an Organized Health Care Education/Training Program
DX: Z00.01 Encounter for general adult medical examination with abnormal findings (principal)

== ENCOUNTER → 2024-12-07 | Outpatient (REF) | payer OTHER, MEDICAID ==
[2024-12-11 13:23] LABS: HPV APTIMA Not Detected (Not Detected)
== END ==
LOC: M SFHCWAGY 13:16
PROVIDERS: ATTEND Specialist
DX: Z12.4 Encounter for screening for malignant neoplasm of cervix (principal)

== ENCOUNTER → 2025-02-08 | Outpatient (REF) | payer OTHER, MEDICAID ==
[2025-02-08 13:37] LABS: LIPASE 44 U/L (12-53)
[2025-02-08 13:39] LABS: AMYLASE 71 U/L (30-118)
[2025-02-08 13:40] LABS: ALBUMIN 3.9 G/DL (3.2-5.2); ALKALINE PHOSPHATASE 79 U/L (35-104); ALT/SGPT 19 U/L (7.0-40); AST/SGOT 9 U/L (<34); BILIRUBIN,TOTAL 0.4 MG/DL (0.3-1.2); BLOOD UREA NITROGEN 9 MG/DL (9-23); CALCIUM LEVEL 9.8 MG/DL (8.5-10.1); CARBON DIOXIDE LEVEL 26 MMOL/L (20-31); CHLORIDE LEVEL 108 MMOL/L (98-107); CREATININE FOR GFR 0.53 MG/DL (0.55-1.30); GLOMERULAR FILTRATION RATE > 90.0 (>60); GLUCOSE, FASTING 125 MG/DL (60-100); POTASSIUM SERUM 4.3 MMOL/L (3.5-5.1); SODIUM LEVEL 140 MMOL/L (136-145); TOTAL PROTEIN 7.3 G/DL (5.7-8.2)
== END ==
LOC: M LAB REF 12:37
PROVIDERS: ATTEND Student in an Organized Health Care Education/Training Program
DX: K21.9 Gastro-esophageal reflux disease without esophagitis (principal)